=== PATIENT | female | born 1930 | race African-American/Black ===

== ENCOUNTER 2018-04-09 09:49 | Inpatient (IN) | payer OTHER ==
--- NOTE | 2018-04-09 10:10 | PDOC ---
History of Present Illness - General Stated Complaint: SOB Time Seen by Provider: 04/09/18 10:03 History Source: Patient Exam Limitations: Clinical Condition - History of Present Illness Initial Comments: 87 yo F w a hx of h/o arthritis and hypertension presents to the ER saying something is not right. She reports that she has been peeing much more frequently than usual and she feels short of breath. The excessive urination has been occurring for 3 days and the SOB began today. She denies dysuria or urgency. She denies any recent fevers, chills, infections, or chest pain. She denies having a cough. She also endorses chronic knee pain as well as itchiness for the past 7 months which has not changed in character. She denies having a headache, dizziness, lightheadedness, chest pain, cough, abdominal pain, back pain, blurry vision, or recent travel. PCP: Tucker Perez PSH: Social Hx: Denies smoking, Drinking, or other substance usage. Allergies: Penicillin Past History - Past Medical History Allergies/Adverse Reactions: Allergies Allergy/AdvReac Type Severity Reaction Status Date / Time Penicillins Allergy Verified 04/09/18 10:16 Home Medications: Ambulatory Orders Acetaminophen W/ Codeine #3 [Tylenol # 3 -] 1 tab PO TID 05/25/14 Nifedipine ER [Procardia XL -] 90 mg PO DAILY 05/25/14 Budesonide/Formeterol Fumarate [SYMBICORT 80/4.5mcg -] 1 inh PO DAILY 04/09/18 Celecoxib [Celebrex] 200 mg PO DAILY 04/09/18 Anemia: No Asthma: No Cancer: No Cardiac Disorders: No CVA: No COPD: No Diabetes: No GI Disorders: No Disorders: No HTN: Yes Hypercholesterolemia: No Liver Disease: No Seizures: No Thyroid Disease: No - Surgical History Abdominal Surgery: No Appendectomy: No Cardiac Surgery: No Cholecystectomy: No Lung Surgery: No Neurologic Surgery: No Orthopedic Surgery: No - Immunization History Td Vaccination: Yes TDAP Vaccination: Yes Immunization Up to Date: Yes - Suicide/Smoking/Psychosocial Hx Smoking History: Former smoker Have you smoked in the past 12 months: Yes Number of Cigarettes Smoked Daily: 20 If you are a former smoker, when did you quit?: 2 yrs ago 'Breaking Loose' booklet given: 05/26/14 Hx Alcohol Use: Yes Drug/Substance Use Hx: No Substance Use Type: Alcohol Hx Substance Use Treatment: No Review of Systems - Review of Systems Able to Perform ROS?: Yes Comments:: CONSTITUTIONAL: Present: Fatigue Absent: fever, no chills EYES: Absent: visual changes ENT: Absent: ear pain, no sore throat CARDIOVASCULAR: Absent: chest pain, no palpitations RESPIRATORY: Present: SOB Absent: cough GI: Absent: abdominal pain, no nausea, no vomiting, no constipation, no diarrhea GENITOURINARY: Absent: dysuria, no frequency, no hematuria MUSKULOSKELETAL: Present: Arthralgia Absent: back pain, no myalgia SKIN: Absent: rash NEURO: Absent: headache *Physical Exam - Physical Exam Comments: GENERAL: Well-appearing, well-nourished. No apparent distress. HEENT: Normocephalic, atraumatic. PERRL, EOM intact. CARDIOVASCULAR: Tachycardic rate, irregular rhythm. Normal S1, S2. PULMONARY: Clear to auscultation bilaterally. ABDOMEN: Soft, non-distended, non-tender. EXTREMITIES: limited ROM in lower extremities. No gross deformities. SKIN: Warm, dry. No rash NEUROLOGICAL: No focal neurological deficits. 04/09/18 10:40 ED Treatment Course - LABORATORY CBC & Chemistry Diagram: 04/09/18 11:01 04/09/18 11:01 Medical Decision Making - Medical Decision Making 87 yo F w a hx of h/o arthritis and hypertension presents to the ER saying something is not right. She reports that she has been peeing much more frequently than usual and she feels short of breath. - tachycardic DDx IBNLT: UTI/pylo, PE, PNA, Arrhythmia Plan: Labs, urine, EKG, CXR, re-assess. EKG: Patient has new onset AFIB. This is likely what's causing her symptoms. We will admit the patient to Tele for a further cardio workup and echocardiogram. - Cardio consult to Dr. Sheikh woodall. *DC/Admit/Observation/Transfer Diagnosis at time of Disposition: Atrial fibrillation by electrocardiogram - Discharge Dispostion Condition at time of disposition: Guarded Decision to Admit order: Yes - Referrals Referrals: Tucker Perez MD [Primary Care Provider] - - Patient Instructions - Post Discharge Activity
[2018-04-09] MEDS ORDERED: SODIUM CHLORIDE 0.9% 500 ML INFUS.BAG IV ONE (10:41)
--- NOTE | 2018-04-09 10:44 | PDOC ---
Attending Attestation - Resident Resident Name: Fidencio Pollard - ED Attending Attestation I have performed the following: I have examined & evaluated the patient, The case was reviewed & discussed with the resident, I agree w/resident's findings & plan, Exceptions are as noted - HPI HPI: 04/09/18 10:43 87y F htn, arthritis, presents with presents with sob, feeling weakness, x 1 day. endorses urinary frequency x 3 days. Patient states that she is feeling urinary frequency and strong smelling urine for 3 daysthat she has been feeling generally weak today. There is no fever, chills, back pain, abdominal pain, diarrhea, bpr, melena, chest pain, cough, hemoptysis, leg swelling. pt endorses mild palpitations. per EMS, upon arrival, her vitals are normal and ekg noted irregular afib that is rate controlled. a/p new onset afib, rate controlled will work up cause to r/o anemia, metabolic derangement, acs anticipate admission for further management/a/c/card assessment - Physicial Exam PE: 04/09/18 11:22 GENERAL: The patient is awake, alert, and fully oriented, Nontoxic - in no acute distress. HEAD: Normocephalic, atraumatic. EYES: extraocular movements intact, sclera anicteric, conjunctiva clear. ENT: Normal voice, Moist mucous membranes. NECK: Normal range of motion, supple LUNGS: Breath sounds equal, clear to auscultation bilaterally. No wheezes, no rhonchi, no rales. HEART: Irregularly irregular, no appreciable murmurs ABDOMEN: Soft, nontender, No guarding, no rebound. . No CVA tenderness EXTREMITIES: Normal range of motion, no calf tenderness, negative Homans NEUROLOGICAL: No facial assymetry, Normal speech, moving all 4'extremities simultaneously and symmetrically PSYCH: Normal mood, normal affect. SKIN: Warm, Dry, normal turgor, - Medical Decision Making 04/10/18 08:27 see above Heart Score/ECG Review - ECG Impressions Comment:: 04/09/18 11:23 Twelve-lead EKG was performed and reviewed by me. Irregularly irregular, rate of 104 Left axis deviation Normal R wave progression, Q waves in the inferior leads
[2018-04-09 11:30] LABS: BASO % 0.5 % (0-2.0); EOS % 1.5 % (0-4.5); HEMATOCRIT 45.4 % (32.4-45.2); HEMOGLOBIN 15.5 GM/dL (10.7-15.3); LYMPH % 24.7 % (8-40); MCH 31.4 pg (25.7-33.7); MCHC 34.1 g/dl (32.0-36.0); MEAN PLT VOLUME 10.6 fl (7.5-11.1); MONO % 9.7 % (3.8-10.2); NEUT % 63.6 % (42.8-82.8); PLATELET COUNT 162 K/MM3 (134-434); RBC 4.93 M/mm3 (3.60-5.2); RDW 14.6 % (11.6-15.6); WHITE BLOOD COUNT 4.7 K/mm3 (4.0-10.0)
[2018-04-09 12:05] LABS: ALBUMIN 3.1 g/dl (3.4-5.0); ALK PHOS 78 U/L (45-117); ANION GAP 7 MMOL/L (8-16); BILIRUBIN,TOTAL 0.7 mg/dL (0.2-1); BLOOD UREA NITROGEN 17 mg/dL (7-18); CALCIUM 8.6 mg/dL (8.5-10.1); CHLORIDE 106 mmol/L (98-107); CO2 27 mmol/L (21-32); GLUCOSE,RANDOM 112 mg/dL (74-106); POTASSIUM 3.9 mmol/L (3.5-5.1); SGOT/AST 81 U/L (15-37); SGPT/ALT 64 U/L (13-61); SODIUM 140 mmol/L (136-145); TOT PROT 7.3 g/dl (6.4-8.2)
[2018-04-09 12:10] LABS: URINE APPEARANCE CLEAR; URINE BILIRUBIN NEGATIVE (<2.0 mg/dL); URINE COLOR LTYELLOW; URINE GLUCOSE (UA) NEGATIVE (NEGATIVE); URINE KETONE NEGATIVE (NEGATIVE); URINE LEUK ESTERASE NEGATIVE (NEGATIVE); URINE NITRITE NEGATIVE (NEGATIVE); URINE PROTEIN NEGATIVE (NEGATIVE); URINE UROBILINOGEN NEGATIVE mg/dL (0.2-1.0)
--- NOTE | 2018-04-09 12:36 | EKG ---
Test Reason : Blood Pressure : / mmHG Vent. Rate : 104 BPM Atrial Rate : 088 BPM P-R Int : 000 ms QRS Dur : 078 ms QT Int : 352 ms P-R-T Axes : 000 -45 027 degrees QTc Int : 462 ms POOR DATA QUALITY, INTERPRETATION MAY BE ADVERSELY AFFECTED ATRIAL FIBRILLATION WITH RAPID VENTRICULAR RESPONSE LEFT AXIS DEVIATION SEPTAL INFARCT , AGE UNDETERMINED INFERIOR INFARCT , AGE UNDETERMINED ABNORMAL ECG WHEN COMPARED WITH ECG OF 25-MAY-2014 18:40, ATRIAL FIBRILLATION HAS REPLACED SINUS RHYTHM SEPTAL INFARCT IS NOW PRESENT INFERIOR INFARCT IS NOW PRESENT NONSPECIFIC T WAVE ABNORMALITY NOW EVIDENT IN INFERIOR LEADS Confirmed by CARLY ALLEN MD ([id number]) on 04/09/2018 12:35:44 PM Referred By: Confirmed By:CARLY ALLEN MD
--- NOTE | 2018-04-09 20:41 | HP ---
DATE OF ADMISSION: 04/09/2018 DATE OF DICTATION: 04/09/2018 This is an 87-year-old female well known to me, known to have hypertension, compliant with her medications, came to the emergency room today with complaint of weakness. In the ER, she was found to have atrial fibrillation and CHF. Also, complaining of leg swelling. After receiving the IV Lasix, her shortness of breath improved. Being admitted with a diagnosis of CHF and atrial fibrillation. Repeat EKG showed normal sinus rhythm. PHYSICAL EXAMINATION: Vital Signs: Today, her blood pressure is 155/96, pulse 108, respirations 20, temperature 98. HEENT: Unremarkable. Neck: Supple. No JVD. Lungs: Clear. Heart: S1, S2 are normal. No S3, S4. Abdomen: Soft. Neurological: Examination grossly normal. Leg edema present. IMPRESSION: 1. Congestive heart failure. 2. Atrial fibrillation. 3. Hypertension. PLAN: Cardiology consult, Dr. Bryant. Continue present medication. Will follow. Lenin [id number]
[2018-04-09] MEDS ORDERED: ACETAMINOPHEN WITH CODEINE 300MG/30MG TABLET PO PRN (23:38)
[2018-04-10 02:16] VITALS: BMI 34.7
--- NOTE | 2018-04-10 09:14 | PN ---
Progress Note, Physician Chief Complaint: Feels better - Current Medication List Current Medications: Active Medications Acetaminophen/Codeine Phosphate (Tylenol # 3 -) 1 tab PO Q8H PRN PRN Reason: PAIN LEVEL 6-10 Budesonide/Formoterol Fumarate (Symbicort 80/4.5mcg -) 1 puff IH DAILY [facility] Celecoxib (Celebrex -) 200 mg PO DAILY [facility] Nifedipine (Procardia Xl -) 90 mg PO DAILY [facility] - Objective Vital Signs: Vital Signs Temperature 98.5 F 04/10/18 01:15 Pulse Rate 106 H 04/10/18 01:15 Respiratory Rate 18 04/10/18 01:15 Blood Pressure 162/105 H 04/10/18 01:15 O2 Sat by Pulse Oximetry (%) 96 04/09/18 23:00 Constitutional: Yes: No Distress Eyes: Yes: WNL HENT: Yes: WNL Neck: Yes: WNL Cardiovascular: Yes: WNL Respiratory: Yes: WNL Gastrointestinal: Yes: WNL ...Rectal Exam: Yes: WNL Genitourinary: Yes: WNL Musculoskeletal: Yes: Joint Stiffness Edema: LLE: 1+, RLE: 1+ Psychiatric: Yes: Alert Labs: CBC, BMP 04/09/18 11:01 04/09/18 11:01 - ....Imaging Chest X-ray: Report Reviewed Assessment/Plan Cardiology consult Dr Gordon
[2018-04-10] MEDS ORDERED: PT OWN MED DRAWER 7, Y5N ONE (09:15)
[2018-04-10] MEDS: NIFEdipine E.R. 90 MG TABLET (FP) PO SCH (09:44)
[2018-04-10] MEDS: CELECOXIB 200 MG CAPSULE PO SCH (09:44)
[2018-04-10] MEDS: BUDESONIDE/FORMETEROL FUMARATE 80/4.5 mcg INHALER IH SCH (09:44)
[2018-04-11] MEDS ORDERED: PT OWN MED DRAWER 7, Y5N ONE (09:27)
[2018-04-11] MEDS: NIFEdipine E.R. 90 MG TABLET (FP) PO SCH (10:37)
[2018-04-11] MEDS: CELECOXIB 200 MG CAPSULE PO SCH (10:37)
--- NOTE | 2018-04-11 11:59 | PN ---
Progress Note, Physician Chief Complaint: Feels tired - Current Medication List Current Medications: Active Medications Acetaminophen/Codeine Phosphate (Tylenol # 3 -) 1 tab PO Q8H PRN PRN Reason: PAIN LEVEL 6-10 Budesonide/Formoterol Fumarate (Symbicort 80/4.5mcg -) 1 puff IH DAILY [facility] Last Admin: 04/10/18 09:44 Dose: 1 inhaler Celecoxib (Celebrex -) 200 mg PO DAILY [facility] Last Admin: 04/11/18 10:37 Dose: 200 mg Nifedipine (Procardia Xl -) 90 mg PO DAILY [facility] Last Admin: 04/11/18 10:37 Dose: 90 mg - Objective Vital Signs: Vital Signs Temperature 98 F 04/11/18 10:35 Pulse Rate 90 04/11/18 10:35 Respiratory Rate 20 04/11/18 10:35 Blood Pressure 133/80 04/11/18 10:35 O2 Sat by Pulse Oximetry (%) 96 04/10/18 21:00 Constitutional: Yes: Mild Distress Eyes: Yes: WNL HENT: Yes: WNL Neck: Yes: WNL Cardiovascular: Yes: Pulse Irregular Respiratory: Yes: WNL Gastrointestinal: Yes: WNL ...Rectal Exam: Yes: Deferred Musculoskeletal: Yes: Muscle Weakness Edema: No Psychiatric: Yes: Alert Labs: CBC, BMP 04/09/18 11:01 04/09/18 11:01 - ....Imaging EKG: Image Reviewed Assessment/Plan Start [facility]
[2018-04-11] MEDS: APIXABAN 2.5 MG TABLET PO SCH ×2 (12:54→21:44)
[2018-04-11] MEDS: BUDESONIDE/FORMETEROL FUMARATE 80/4.5 mcg INHALER IH SCH (13:12)
[2018-04-11] MEDS ORDERED: APIXABAN 2.5 MG TABLET PO SCH (22:00)
--- NOTE | 2018-04-12 09:34 | PN ---
Progress Note, Physician Chief Complaint: Pt lying in bed,comfortable No Sob AF present,Cardiology consult pending Heart rate under control - Current Medication List Current Medications: Active Medications Acetaminophen/Codeine Phosphate (Tylenol # 3 -) 1 tab PO Q8H PRN PRN Reason: PAIN LEVEL 6-10 Apixaban (Eliquis -) 2.5 mg PO BID [facility] Last Admin: 04/11/18 21:44 Dose: 2.5 mg Budesonide/Formoterol Fumarate (Symbicort 80/4.5mcg -) 1 puff IH DAILY [facility] Last Admin: 04/11/18 13:12 Dose: 1 inhaler Celecoxib (Celebrex -) 200 mg PO DAILY [facility] Last Admin: 04/11/18 10:37 Dose: 200 mg Nifedipine (Procardia Xl -) 90 mg PO DAILY [facility] Last Admin: 04/11/18 10:37 Dose: 90 mg - Objective Vital Signs: Vital Signs Temperature 98.2 F 04/12/18 06:00 Pulse Rate 86 04/12/18 06:00 Respiratory Rate 20 04/12/18 06:00 Blood Pressure 140/80 04/12/18 06:00 O2 Sat by Pulse Oximetry (%) 98 04/11/18 21:00 Constitutional: Yes: No Distress Eyes: Yes: Conjunctiva Clear HENT: Yes: Atraumatic, Normocephalic Neck: Yes: Supple, Trachea Midline Cardiovascular: Yes: Pulse Irregular Respiratory: Yes: Regular, CTA Bilaterally Gastrointestinal: Yes: Normal Bowel Sounds, Soft Breast(s): Yes: WNL Musculoskeletal: Yes: WNL Edema: No Peripheral Pulses WNL: Yes Neurological: Yes: WNL, Alert ...Motor Strength: WNL Psychiatric: Yes: WNL, Alert Labs: CBC, BMP 04/09/18 11:01 04/09/18 11:01 Assessment/Plan HTN Atrial fibrillation new onset PLAN Cardiology consult Pending Continue Eliqius Continue BP meds will f/u PT
[2018-04-12] MEDS: CELECOXIB 200 MG CAPSULE PO SCH (09:49)
[2018-04-12] MEDS: NIFEdipine E.R. 90 MG TABLET (FP) PO SCH (09:49)
[2018-04-12] MEDS: BUDESONIDE/FORMETEROL FUMARATE 80/4.5 mcg INHALER IH SCH (09:50)
[2018-04-12] MEDS: APIXABAN 2.5 MG TABLET PO SCH ×2 (09:50→21:42)
[2018-04-12] MEDS: metoPROLOL SUCCINATE 25 MG TAB.SR.24H (FP) PO SCH (16:15)
--- NOTE | 2018-04-12 20:50 | CONS ---
CARDIOLOGY CONSULTATION DATE OF CONSULTATION: DATE OF DICTATION: 04/12/2018 REQUESTING PHYSICIAN: Tucker Perez MD CHIEF COMPLAINT: Dizziness, unsteady gait, palpitations, shortness of breath, and episode of vertigo. The patient is an 87-year-old female with history of hypertension, developed lightheadedness, dizziness, and she felt unsteady while ambulating with the help of a walker, also noticed palpitations and episode of vertigo where the room was spinning and shortness of breath. These symptoms occurred on , and the symptoms persisted and came to the hospital on Thursday. There is no history of chest pain or discomfort either at rest or with exertion. She had dyspnea with exertion. No history of paroxysmal nocturnal dyspnea or orthopnea reported. No history of focal weakness, presyncope, or syncope. No history of diabetes mellitus. PAST HISTORY: As mentioned in the history of present illness. History of bilateral deafness. SURGICAL HISTORY: Had 3 sections. Bilateral cataract extraction and intraocular lens implantation. SOCIAL HISTORY: She is a , has a son and 2 daughters. The son is blind. She used to smoke 3 packs of cigarettes starting at the age of 18 and stopped in her 50s. She admits to drinking heavily and stopped 3-4 years ago. No history of drug use and has 1-2 cups of coffee per day. FAMILY HISTORY: Father in his old age, was an alcoholic and heavy smoker. Mother at the age of 102 and also smoked heavily and was a heavy imbiber of alcohol. Had 2 brothers. One of them of alcoholism. The other brother is sick; cause is uncertain. Has a sister who is healthy. ALLERGIES: As noted in the hospital records, she is allergic to PENICILLIN. CURRENT MEDICATIONS: 1. Symbicort 80/4.5 mcg 1 inhalation daily. 2. Eliquis 2.5 mg p.o. b.i.d. 3. Nifedipine 90 mg p.o. daily. 4. Metoprolol succinate 25 mg started today. 5. Celebrex 200 mg p.o. daily. 6. Acetaminophen and codeine No. 3 one tablet q.8 hours p.r.n. REVIEW OF SYSTEMS: Constitutional: No history of chills, fever, or night sweats. No history of unintentional weight loss. HEENT: History of occasional frontal headache, especially when she misses her medications for hypertension. No history of diplopia, blurred vision. History of bilateral deafness. No history of tinnitus. No history of epistaxis or hoarseness. Cardiovascular: See history of present illness. Respiratory: Occasional cough. No history of hemoptysis. No history of tuberculosis. Gastrointestinal: Denies having nausea, vomiting, melena, or hematemesis. No history of unintentional weight loss or early satiety. No history of abdominal pain or discomfort. No history of change normal bowel habits. Musculoskeletal: History of arthritis. No history of myalgias. Genitourinary: History of recent frequency of micturition. No history of dysuria, frequency, or hematuria. Endocrine: No history of polyuria or polydipsia. No history of intolerance to cold or warm weather. Hematological: No history of anemia, bleeding, or ecchymosis. PHYSICAL EXAMINATION: General: An 87-year-old alert female who was in no acute distress. No pallor, cyanosis, clubbing, or jaundice. Vital Signs: Blood pressure 127/72 mmHg, pulse 106 beats per minute and irregularly irregular. Temperature 98 degrees Fahrenheit. Respirations were 20 per minute. Oxygen saturation 98% on 2 L of O2. Neck: Supple. Positive hepatojugular reflex. Carotids were 2+. Upstrokes were normal. No bruits were heard, and no thyromegaly was present. Heart: No heaves or thrills. Heart sounds were distant. Ejection systolic murmur grade 1-2/6 was heard at the second right intercostal space, ending in early systole. There was a decrescendo systolic murmur grade 2/6 heard at the lower left sternal border and apex. No diastolic murmur or gallops were heard. Lungs: Fine crepitations at the right base. No expiratory wheezing. Abdomen: Obese, soft, and nontender. No hepatosplenomegaly or palpable masses were felt. Bowel sounds were absent. No bruits were heard. There was a well-healed hypogastric surgical scar. Extremities: No calf tenderness. There was 1+ left ankle edema. Trace right pretibial edema. Femoral pulses were 2+. Dorsalis pedis pulses were 1+. Posterior tibial pulses could not be palpated. LABORATORY DATA: ECG dated April 09, 2018: Suboptimal study. Baseline artifacts. Atrial fibrillation with rapid ventricular response, left anterior hemiblock, poor R-wave progression, V1 to V3; ST and T-wave abnormalities. X-ray chest: Single AP view of the chest reveals large heart, unfolded aorta, and some new atelectatic changes in the left mid-zone since May 30, 2014. There is no sign of gross consolidation. The angles are sharp. Soft tissue is intact. There are degenerative changes. Correlation and followup recommended. CBC: WBC count 4700, hemoglobin 15.5 g/dL, hematocrit 45.4%, platelet count 162,000. Chemistry: Sodium 140, potassium 3.9, chloride 106, CO2 of 27 mmol/L. BUN 17, creatinine 1.0 mg/dL. Random glucose was 112 mg/dL. Total bilirubin 0.7. AST 81 (elevated). ALT 64 (elevated). Alkaline phosphatase was 78. Troponin 0.02. TSH was 1.24. IMPRESSION: 1. Atrial fibrillation with rapid ventricular response. 2. Palpitations, lightheadedness, vertigo secondary to number 1. 3. Dyspnea, suspect left ventricular failure precipitated by number 1. 4. Hypertension, hypertensive cardiovascular disease. 5. Systolic murmur compatible with aortic valvular disease. 6. Abnormal liver function tests. 7. History of osteoarthritis. RECOMMENDATIONS: 1. BNP. 2. Dose of metoprolol succinate could be increased if patient continues to have a rapid ventricular response, especially when ambulating. 3. Echocardiogram. 4. Consider CT scan of the head to exclude the possibility of systemic embolization. 5. Increase ambulation with assistance. PROGNOSIS: Guarded. Thank you for your referral. Yours sincerely, COURTNEY GARCIA M.D. [id number]
[2018-04-13 06:56] LABS: BASO % 0.5 % (0-2.0); EOS % 1.5 % (0-4.5); HEMATOCRIT 43.6 % (32.4-45.2); HEMOGLOBIN 13.9 GM/dL (10.7-15.3); LYMPH % 35.8 % (8-40); MCH 29.8 pg (25.7-33.7); MCHC 31.9 g/dl (32.0-36.0); MEAN CELL VOLUME 93.7 fl (80-96); MEAN PLT VOLUME 10.3 fl (7.5-11.1); MONO % 9.6 % (3.8-10.2); NEUT % 52.6 % (42.8-82.8); PLATELET COUNT 138 K/MM3 (134-434); RBC 4.65 M/mm3 (3.60-5.2); RDW 14.4 % (11.6-15.6)
[2018-04-13 07:09] LABS: ALK PHOS 75 U/L (45-117); ANION GAP 9 MMOL/L (8-16); BLOOD UREA NITROGEN 25 mg/dL (7-18); CALCIUM 8.5 mg/dL (8.5-10.1); CHLORIDE 106 mmol/L (98-107); CO2 26 mmol/L (21-32); CREATININE 0.9 mg/dL (0.55-1.3); GLUCOSE,RANDOM 104 mg/dL (74-106); N-TERMINAL BNP 783.3 pg/ml (5-450); POTASSIUM 4.3 mmol/L (3.5-5.1); SGOT/AST 72 U/L (15-37); SGPT/ALT 57 U/L (13-61); SODIUM 141 mmol/L (136-145); TOT PROT 7.1 g/dl (6.4-8.2)
[2018-04-13 07:21] LABS: INR 1.15 (0.83-1.09); PROTHROMBIN TIME (PATIENT) 13.6 SEC (9.7-13.0)
--- NOTE | 2018-04-13 09:43 | PN ---
Progress Note, Physician Chief Complaint: Pt lying in bed,comfortable No Sob,no dizziness AF present,Cardiology consult appreciated BNP 783 Heart rate under control - Current Medication List Current Medications: Active Medications Apixaban (Eliquis -) 2.5 mg PO BID [facility] Last Admin: 04/12/18 21:42 Dose: 2.5 mg Budesonide/Formoterol Fumarate (Symbicort 80/4.5mcg -) 1 puff IH DAILY [facility] Last Admin: 04/12/18 09:50 Dose: 1 inhaler Celecoxib (Celebrex -) 200 mg PO DAILY [facility] Last Admin: 04/12/18 09:49 Dose: 200 mg Metoprolol Succinate (Toprol Xl -) 25 mg PO DAILY [facility] Last Admin: 04/12/18 16:15 Dose: 25 mg Nifedipine (Procardia Xl -) 90 mg PO DAILY [facility] Last Admin: 04/12/18 09:49 Dose: 90 mg - Objective Vital Signs: Vital Signs Temperature 98.1 F 04/13/18 05:52 Pulse Rate 83 04/13/18 05:52 Respiratory Rate 20 04/13/18 05:52 Blood Pressure 120/74 04/13/18 05:52 O2 Sat by Pulse Oximetry (%) 96 04/12/18 20:45 Constitutional: Yes: No Distress Eyes: Yes: Conjunctiva Clear HENT: Yes: Atraumatic Neck: Yes: Supple Cardiovascular: Yes: Pulse Irregular Respiratory: Yes: Regular, CTA Bilaterally Gastrointestinal: Yes: Normal Bowel Sounds, Soft Musculoskeletal: Yes: WNL Extremities: Yes: Other (lt antecubital fossa induration and slight tenderness) Edema: Yes Edema: LLE: Trace, RLE: Trace Peripheral Pulses WNL: Yes Neurological: Yes: WNL, Alert ...Motor Strength: WNL Psychiatric: Yes: WNL, Alert Labs: CBC, BMP 04/13/18 05:30 04/13/18 05:30 INR, PTT INR 1.15 (0.83-1.09) H 04/13/18 05:30 Assessment/Plan HTN Atrial fibrillation new onset,rate under control ?cellulitis Lt antecubital fossa PLAN Cardiology f/u Continue Eliqius Continue BP meds will f/u cardiology rec regarding d/c plan Venous doppler Lt UE keflex 250mg po tid 7days Elevation of Lt UE WArm compress motrin 400mg potid prn
[2018-04-13 10:03] VITALS: BP 126/66; PULSE 93; TEMP 98.4
[2018-04-13] MEDS: NIFEdipine E.R. 90 MG TABLET (FP) PO SCH (10:03)
[2018-04-13] MEDS: metoPROLOL SUCCINATE 25 MG TAB.SR.24H (FP) PO SCH (10:03)
[2018-04-13] MEDS: CELECOXIB 200 MG CAPSULE PO SCH (10:03)
[2018-04-13] MEDS: BUDESONIDE/FORMETEROL FUMARATE 80/4.5 mcg INHALER IH SCH (10:04)
[2018-04-13] MEDS: APIXABAN 2.5 MG TABLET PO SCH (10:04)
--- NOTE | 2018-04-13 10:17 | PN ---
Progress Note (short form) - Note Progress Note: 87 year old AA female known case of hypertension, admitted with dizziness, palpitations, intermittent SOB and found to be in atril fib with rapid ventricular response. Rate controlied with Toprol XL., tacr bilateral ankle edema. No further dyspnea or dizziness is being discharged. Active Medications Apixaban (Eliquis -) 2.5 mg PO BID [facility] Last Admin: 04/13/18 10:04 Dose: 2.5 mg Budesonide/Formoterol Fumarate (Symbicort 80/4.5mcg -) 1 puff IH DAILY [facility] Last Admin: 04/13/18 10:04 Dose: 1 puff Celecoxib (Celebrex -) 200 mg PO DAILY [facility] Last Admin: 04/13/18 10:03 Dose: 200 mg Metoprolol Succinate (Toprol Xl -) 25 mg PO DAILY [facility] Last Admin: 04/13/18 10:03 Dose: 25 mg Nifedipine (Procardia Xl -) 90 mg PO DAILY [facility] Last Admin: 04/13/18 10:03 Dose: 90 mg Last Vital Signs Temp Pulse Resp BP Pulse Ox 98.4 F 93 irregular 16 126/66 97 04/13/18 10:02 04/13/18 10:02 04/13/18 10:02 04/13/18 10:02 04/13/18 09:00 NECK: Supple, no JVD, carotids equal, no bruits heard. HEART: PMI in the the 5th ICS, distant sounds, S1 variable,S2 normal. RAISA II/ at the 2nd right ICS.NO diastolic murmur or gallops heard. LUNGS: Clear on auscultation. ABDOMEN: Soft, nontender, no organomegaly appreciated. EXTREMITIES: No calf tenderness, trace bilateral ankle edema.Reddness and swelling left anticubital fossa and forearm. CBC, BMP 04/13/18 05:30 04/13/18 05:30 IMPRESSION: 1. Atrial fibrillation with controlled ventricular response, probalbly new onset. 2. Hypertension/HCVD. 3. AV disease. 4. Cellulitis of the left forearm. RECOMMENDATIONS: 1. As mentioned in the consult. 2. Evaluation and treatment of the cellulitis of the left forearm. 3. Out patient followup. 4. Discharge when medically stable.
--- NOTE | 2018-04-13 21:04 | DS ---
DATE OF ADMISSION: 04/09/2018 DATE OF DISCHARGE: 04/13/2018 The patient is an 87-year-old female with history of arthritis, hypertension, admitted with atrial fibrillation, new onset. Patient came with shortness of breath and feeling weakness and slight dizziness. PAST MEDICAL HISTORY: As mentioned before. ALLERGIES: PENICILLIN. MEDICATIONS: Patient is on nifedipine ER, Symbicort 80/4.5, and Celebrex for arthritis. PHYSICAL EXAMINATION: General: At the time of admission, in the emergency room, patient was awake, alert, and fully oriented. No apparent distress. Vital Signs: In the emergency room the temperature was 97.8, pulse rate 108 and irregular, blood pressure 147/95, respiratory rate 16, and saturation was 99. Head and Neck: Normal. Respiratory: Clear. Cardiovascular: First and second sound are irregular. Abdomen: Soft and no tenderness. No distention. Bowel sounds present. Extremities: No pedal edema. LABORATORY: Shows a CBC normal, CMP normal. EKG shows atrial fibrillation. Chest x-ray: No gross consolidation. Degenerative changes present. Thyroid function was normal. HOSPITAL COURSE: The case was discussed with Cardiology who recommended admission to telemetry. Patient admitted to telemetry. EKG showed pulse irregularly irregular, rate of 104, left axis deviation. Normal RV progression. Q-wave in the inferior leads. Patient was started on Eliquis 2.5 mg p.o. b.i.d., monitored on telemetry, and Procardia XL 90 mg p.o. daily. Metoprolol XL 25 mg started and rate under control. Patient had pain and swelling in the left antecubital fossa. Venous Doppler of the left upper extremity done shows superficial thrombophlebitis in the left arm, basically in the superficial cephalic vein. There were mild cellulitis changes in the left antecubital fossa. Patient was discharged home on Eliquis 2.5 mg p.o. b.i.d., Motrin 400 mg p.o. b.i.d., Procardia and Toprol XL 25 mg p.o. daily. Recommend evaluation of the arm, hot compresses, and Keflex 250 mg p.o. t.i.d. for 5 days given for the cellulitis. Patient was stable on the floor and discharged home in stable condition. Recommended to follow with Cardiology and primary care physician in 1 week. Patient was stable at the time of discharge. Lenin [id number]
== END 2018-04-13 15:02 | disposition home or self-care (01) | DRG 309 ==
LOC: JER 09:49 → JERBED 13:30 → J4W 22:35
PROVIDERS: ADMIT Internal Medicine; ATTEND Internal Medicine
DX: I48.91 Unspecified atrial fibrillation (principal); L03.114 Cellulitis of left upper limb; Z88.0 Allergy status to penicillin; I11.0 Hypertensive heart disease with heart failure; I50.9 Heart failure, unspecified; R79.89 Other specified abnormal findings of blood chemistry; I80.8 Phlebitis and thrombophlebitis of other sites
CPT/HCPCS: 36415; 71045-TC-FY; 80053; 81003; 83880; 84443; 84484; 85025; 85610; 87086; 93005; 93010; 93971; 97116-GP; 97162-GP; 99284-25

== ENCOUNTER 2018-08-29 15:47 | Inpatient (IN) | payer OTHER | END 2018-09-04 16:20 | disposition home or self-care (01) | LOC: J4S 08-30 09:04 → JER 15:47 → JERBED 17:43 ==

== ENCOUNTER 2021-02-07 11:35 | Inpatient (IN) | payer OTHER ==
[2021-02-07] MEDS ORDERED: ALBUTEROL SO4 2.5/IPRATROPIUM 0.5 INH SOL 3 ML VIAL.NEB. NEB ONE ×2 (12:28→12:47)
[2021-02-07] MEDS ORDERED: FUROSEMIDE 40 MG/4 ML INJECTABLE VIAL IVPUSH ONE ×2 (12:29→23:46)
[2021-02-07] MEDS ORDERED: FUROSEMIDE 40 MG/4 ML INJECTABLE VIAL ONE ×2 (12:47→23:51)
[2021-02-07 12:58] LABS: BASO % 0.7 % (0-2.0); EOS % 0.6 % (0-4.5); HEMATOCRIT 41.8 % (32.4-45.2); HEMOGLOBIN 13.5 GM/dL (10.7-15.3); LYMPH % 10.7 % (8-40); MCHC 32.2 g/dl (32.0-36.0); MEAN CELL VOLUME 93.1 fl (80-96); MEAN PLT VOLUME 9.7 fl (7.5-11.1); MONO % 11.8 % (3.8-10.2); NEUT % 76.2 % (42.8-82.8); PLATELET COUNT 157 10^3/uL (134-434); RBC 4.49 M/mm3 (3.60-5.2); RDW 17.4 % (11.6-15.6)
[2021-02-07 13:23] LABS: CALCIUM 8.8 mg/dL (8.5-10.1)
[2021-02-07 13:24] LABS: ALBUMIN 3.1 g/dl (3.4-5.0)
[2021-02-07 13:27] LABS: CREATININE 1.9 mg/dL (0.55-1.3)
[2021-02-07 13:32] LABS: N-TERMINAL BNP 3558.4 pg/ml (5-450)
[2021-02-07] MEDS ORDERED: POLYETHYLENE GLYCOL (HEALTHYLAX) 3350 17 GM PACKET PO PRN (21:41)
[2021-02-07] MEDS ORDERED: ACETAMINOPHEN 325 MG TABLET (FP) PO PRN (21:41)
[2021-02-07] MEDS: APIXABAN 2.5 MG TABLET PO SCH (22:06)
[2021-02-07] MEDS: ALBUTEROL SO4 2.5/IPRATROPIUM 0.5 INH SOL 3 ML VIAL.NEB. NEB PRN (23:49)
[2021-02-08 07:27] LABS: BASO % 0.5 % (0-2.0); HEMATOCRIT 40.3 % (32.4-45.2); HEMOGLOBIN 13.3 GM/dL (10.7-15.3); INR 1.39 (0.83-1.09); LYMPH % 16.8 % (8-40); MCH 30.3 pg (25.7-33.7); MEAN CELL VOLUME 91.8 fl (80-96); MEAN PLT VOLUME 9.6 fl (7.5-11.1); NEUT % 68.7 % (42.8-82.8); PLATELET COUNT 166 10^3/uL (134-434); PROTHROMBIN TIME (PATIENT) 15.6 SEC (9.7-13.0); RBC 4.39 M/mm3 (3.60-5.2); RDW 16.4 % (11.6-15.6); WHITE BLOOD COUNT 4.5 K/mm3 (4.0-10.0)
[2021-02-08 07:57] LABS: BLOOD UREA NITROGEN 41.6 mg/dL (7-18)
[2021-02-08 07:58] LABS: CALCIUM 8.9 mg/dL (8.5-10.1); MAGNESIUM 2.4 mg/dL (1.8-2.4)
[2021-02-08 08:03] LABS: CREATININE 1.7 mg/dL (0.55-1.3)
[2021-02-08] MEDS ORDERED: PT OWN MED DRAWER 7, Y5N ONE (09:39)
[2021-02-08] MEDS ORDERED: CELECOXIB 200 MG CAPSULE PO SCH (10:00)
[2021-02-08] MEDS ORDERED: FUROSEMIDE 40 MG/4 ML INJECTABLE VIAL IVPUSH SCH ×2 (10:15→14:46)
[2021-02-08] MEDS ORDERED: ceFAZolin SODIUM 1 GM VIAL ONE ×2 (11:11→16:45)
[2021-02-08] MEDS ORDERED: DEXTROSE 5%-WATER - 50 ML IVPB ONE ×2 (11:12→16:46)
[2021-02-08] MEDS: ALBUTEROL SO4 2.5/IPRATROPIUM 0.5 INH SOL 3 ML VIAL.NEB. NEB PRN ×2 (11:40→17:34)
[2021-02-08] MEDS: NIFEdipine E.R. 90 MG TABLET PO SCH (11:45)
[2021-02-08] MEDS: APIXABAN 2.5 MG TABLET PO SCH ×2 (11:45→21:13)
[2021-02-08] MEDS: metoPROLOL SUCCINATE 25 MG TAB.SR.24H (FP) PO SCH (11:46)
[2021-02-08] MEDS: CEFAZOLIN 1 GM in DEXTROSE 5%-WATER - 50 ML IVPB SCH ×2 (11:46→17:22)
[2021-02-08] MEDS ORDERED: FUROSEMIDE 40 MG TABLET (FP) PO SCH (14:00)
[2021-02-08] MEDS: FUROSEMIDE 40 MG/4 ML INJECTABLE VIAL IVPUSH SCH ×2 (17:22→17:35)
[2021-02-09] MEDS ORDERED: ceFAZolin SODIUM 1 GM VIAL ONE ×3 (02:41→15:58)
[2021-02-09] MEDS ORDERED: DEXTROSE 5%-WATER - 50 ML IVPB ONE ×3 (02:41→15:59)
[2021-02-09] MEDS: CEFAZOLIN 1 GM in DEXTROSE 5%-WATER - 50 ML IVPB SCH ×3 (02:47→17:25)
[2021-02-09] MEDS: FUROSEMIDE 40 MG/4 ML INJECTABLE VIAL IVPUSH SCH ×2 (05:55→13:38)
[2021-02-09 08:33] LABS: BLOOD UREA NITROGEN 47.6 mg/dL (7-18); CALCIUM 8.4 mg/dL (8.5-10.1)
[2021-02-09 08:37] LABS: CREATININE 1.6 mg/dL (0.55-1.3)
[2021-02-09] MEDS: NIFEdipine E.R. 90 MG TABLET PO SCH (09:49)
[2021-02-09] MEDS: APIXABAN 2.5 MG TABLET PO SCH ×2 (09:49→22:21)
[2021-02-09] MEDS: metoPROLOL SUCCINATE 25 MG TAB.SR.24H (FP) PO SCH (09:49)
[2021-02-09] MEDS: ALBUTEROL SO4 2.5/IPRATROPIUM 0.5 INH SOL 3 ML VIAL.NEB. NEB PRN (10:06)
[2021-02-10] MEDS ORDERED: ceFAZolin SODIUM 1 GM VIAL ONE ×3 (03:19→16:59)
[2021-02-10] MEDS ORDERED: DEXTROSE 5%-WATER - 50 ML IVPB ONE ×3 (03:19→17:00)
[2021-02-10] MEDS: CEFAZOLIN 1 GM in DEXTROSE 5%-WATER - 50 ML IVPB SCH ×3 (03:21→17:23)
[2021-02-10] MEDS: FUROSEMIDE 40 MG/4 ML INJECTABLE VIAL IVPUSH SCH ×2 (06:58→15:19)
[2021-02-10] MEDS: ALBUTEROL SO4 2.5/IPRATROPIUM 0.5 INH SOL 3 ML VIAL.NEB. NEB PRN ×2 (08:35→14:25)
[2021-02-10] MEDS: NIFEdipine E.R. 90 MG TABLET PO SCH (10:22)
[2021-02-10] MEDS: APIXABAN 2.5 MG TABLET PO SCH ×2 (10:22→22:46)
[2021-02-10] MEDS: metoPROLOL SUCCINATE 25 MG TAB.SR.24H (FP) PO SCH (10:22)
[2021-02-10] MEDS ORDERED: HALOPERIDOL LACTATE 5 MG/ML IM ONE (21:30)
[2021-02-11] MEDS ORDERED: DEXTROSE 5%-WATER - 50 ML IVPB ONE ×2 (01:19→09:16)
[2021-02-11] MEDS ORDERED: ceFAZolin SODIUM 1 GM VIAL ONE ×2 (01:19→09:16)
[2021-02-11] MEDS: CEFAZOLIN 1 GM in DEXTROSE 5%-WATER - 50 ML IVPB SCH ×2 (01:33→10:08)
[2021-02-11] MEDS: ALBUTEROL SO4 2.5/IPRATROPIUM 0.5 INH SOL 3 ML VIAL.NEB. NEB PRN ×2 (01:40→20:09)
[2021-02-11] MEDS ORDERED: LORazepam 2 MG/ML SDV VIAL IM ONE ×2 (02:38→14:45)
[2021-02-11] MEDS ORDERED: LORazepam 2 MG/ML SDV VIAL ONE (02:53)
[2021-02-11] MEDS: FUROSEMIDE 40 MG/4 ML INJECTABLE VIAL IVPUSH SCH ×2 (06:17→13:43)
[2021-02-11] MEDS ORDERED: HALOPERIDOL LACTATE 5 MG/ML IM ONE (06:33)
[2021-02-11] MEDS ORDERED: methylPREDNISolone NA SUCC 40 MG/1 ML VIAL IVPUSH ONE (06:35)
[2021-02-11] MEDS ORDERED: ALBUTEROL SO4 2.5/IPRATROPIUM 0.5 INH SOL 3 ML VIAL.NEB. NEB ONE (06:35)
[2021-02-11] MEDS ORDERED: methylPREDNISolone NA SUCC 40 MG/1 ML VIAL ONE (06:43)
[2021-02-11] MEDS ORDERED: LORazepam 2 MG/ML SDV VIAL IVPUSH ONE (06:43)
[2021-02-11] MEDS ORDERED: ALBUTEROL SO4 2.5/IPRATROPIUM 0.5 INH SOL 3 ML VIAL.NEB. NEB SCH (06:45)
[2021-02-11] MEDS: ALBUTEROL SO4 2.5/IPRATROPIUM 0.5 INH SOL 3 ML VIAL.NEB. NEB SCH ×2 (06:55→10:54)
[2021-02-11 08:47] LABS: HEMATOCRIT 39.1 % (32.4-45.2); HEMOGLOBIN 13.3 GM/dL (10.7-15.3); MCH 30.3 pg (25.7-33.7); MCHC 33.9 g/dl (32.0-36.0); MEAN CELL VOLUME 89.4 fl (80-96); PLATELET COUNT 148 10^3/uL (134-434); RBC 4.37 M/mm3 (3.60-5.2); RDW 15.7 % (11.6-15.6)
[2021-02-11 09:16] LABS: CALCIUM 8.7 mg/dL (8.5-10.1)
[2021-02-11 09:18] LABS: BILIRUBIN,TOTAL 1.1 mg/dL (0.2-1)
[2021-02-11] MEDS ORDERED: HALOPERIDOL DECANOATE 100 MG/ML IM ONE (09:46)
[2021-02-11] MEDS ORDERED: POTASSIUM CHLORIDE TABS 20 MEQ TABLET.ER (FP) PO SCH (10:00)
[2021-02-11] MEDS: NIFEdipine E.R. 90 MG TABLET PO SCH (10:07)
[2021-02-11] MEDS: APIXABAN 2.5 MG TABLET PO SCH ×2 (10:08→22:16)
[2021-02-11] MEDS: metoPROLOL SUCCINATE 25 MG TAB.SR.24H (FP) PO SCH (10:08)
[2021-02-11] MEDS ORDERED: PT OWN MED DRAWER 7, Y5N ONE ×2 (10:36→20:30)
[2021-02-11] MEDS: POTASSIUM CHLORIDE ORAL LIQUID 20 MEQ/15 ML PO SCH ×2 (10:53→22:16)
[2021-02-11] MEDS: SACUBITRIL/VALSARTAN 24 MG-26 MG TABLET PO SCH ×2 (10:53→22:16)
[2021-02-12] MEDS: FUROSEMIDE 40 MG/4 ML INJECTABLE VIAL IVPUSH SCH ×2 (05:35→13:51)
[2021-02-12] MEDS ORDERED: PT OWN MED DRAWER 7, Y5N ONE ×2 (09:09→21:31)
[2021-02-12] MEDS: SACUBITRIL/VALSARTAN 24 MG-26 MG TABLET PO SCH (09:24)
[2021-02-12] MEDS: metoPROLOL SUCCINATE 25 MG TAB.SR.24H (FP) PO SCH (09:24)
[2021-02-12] MEDS: APIXABAN 2.5 MG TABLET PO SCH ×2 (09:24→23:11)
[2021-02-12] MEDS: NIFEdipine E.R. 90 MG TABLET PO SCH (09:24)
[2021-02-12] MEDS: POTASSIUM CHLORIDE ORAL LIQUID 20 MEQ/15 ML PO SCH ×2 (09:25→23:13)
[2021-02-12] MEDS: NIFEdipine E.R. 30 MG TABLET PO SCH (11:32)
[2021-02-12] MEDS: ALBUTEROL SO4 2.5/IPRATROPIUM 0.5 INH SOL 3 ML VIAL.NEB. NEB PRN (20:30)
[2021-02-12] MEDS: SACUBITRIL/VALSARTAN 49 MG-51 MG TABLET PO SCH (23:11)
[2021-02-13] MEDS: FUROSEMIDE 40 MG/4 ML INJECTABLE VIAL IVPUSH SCH ×2 (07:01→13:22)
[2021-02-13] MEDS: APIXABAN 2.5 MG TABLET PO SCH ×2 (09:32→21:09)
[2021-02-13] MEDS: POTASSIUM CHLORIDE ORAL LIQUID 20 MEQ/15 ML PO SCH ×2 (09:32→21:20)
[2021-02-13] MEDS: NIFEdipine E.R. 30 MG TABLET PO SCH (09:32)
[2021-02-13] MEDS: SACUBITRIL/VALSARTAN 49 MG-51 MG TABLET PO SCH ×2 (09:32→21:20)
[2021-02-13] MEDS ORDERED: PT OWN MED DRAWER 7, Y5N ONE ×2 (20:38→21:11)
[2021-02-14 00:05] VITALS: BMI 31.2
[2021-02-14] MEDS: FUROSEMIDE 40 MG/4 ML INJECTABLE VIAL IVPUSH SCH ×2 (06:12→13:06)
[2021-02-14] MEDS ORDERED: PT OWN MED DRAWER 7, Y5N ONE ×3 (09:19→21:51)
[2021-02-14] MEDS: NIFEdipine E.R. 30 MG TABLET PO SCH (09:50)
[2021-02-14] MEDS: POTASSIUM CHLORIDE ORAL LIQUID 20 MEQ/15 ML PO SCH ×2 (09:50→22:33)
[2021-02-14] MEDS: APIXABAN 2.5 MG TABLET PO SCH ×2 (09:50→22:33)
[2021-02-14] MEDS: MULTIVITAMINS (DAILY MVI) TABLET (FP) PO SCH (09:50)
[2021-02-14 09:51] LABS: HEMATOCRIT 39.3 % (32.4-45.2); HEMOGLOBIN 12.9 GM/dL (10.7-15.3); MCH 29.5 pg (25.7-33.7); MCHC 32.8 g/dl (32.0-36.0); MEAN PLT VOLUME 10.3 fl (7.5-11.1); PLATELET COUNT 174 10^3/uL (134-434); RBC 4.37 M/mm3 (3.60-5.2); RDW 16.1 % (11.6-15.6)
[2021-02-14 10:20] LABS: BLOOD UREA NITROGEN 22.6 mg/dL (7-18)
[2021-02-14 10:23] LABS: CREATININE 0.9 mg/dL (0.55-1.3)
[2021-02-14 10:27] LABS: TOT PROT 5.8 g/dl (6.4-8.2)
[2021-02-14 10:30] LABS: ALBUMIN 2.3 g/dl (3.4-5.0)
[2021-02-14] MEDS: SACUBITRIL/VALSARTAN 49 MG-51 MG TABLET PO SCH ×2 (13:06→22:37)
[2021-02-15] MEDS: FUROSEMIDE 40 MG/4 ML INJECTABLE VIAL IVPUSH SCH ×2 (06:44→14:55)
[2021-02-15] MEDS ORDERED: PT OWN MED DRAWER 7, Y5N ONE ×2 (08:53→22:08)
[2021-02-15] MEDS: APIXABAN 2.5 MG TABLET PO SCH (09:33)
[2021-02-15] MEDS: SACUBITRIL/VALSARTAN 49 MG-51 MG TABLET PO SCH ×2 (09:33→22:58)
[2021-02-15] MEDS: POTASSIUM CHLORIDE ORAL LIQUID 20 MEQ/15 ML PO SCH ×2 (09:33→22:58)
[2021-02-15] MEDS: NIFEdipine E.R. 30 MG TABLET PO SCH (09:33)
[2021-02-15] MEDS: MULTIVITAMINS (DAILY MVI) TABLET (FP) PO SCH (09:33)
[2021-02-15] MEDS ORDERED: APIXABAN 2.5 MG TABLET PO SCH (15:28)
[2021-02-15] MEDS ORDERED: FUROSEMIDE 40 MG/4 ML INJECTABLE VIAL IVPUSH ONE (17:00)
[2021-02-15] MEDS: APIXABAN 5 MG TABLET PO SCH (22:58)
[2021-02-16] MEDS: FUROSEMIDE 40 MG/4 ML INJECTABLE VIAL IVPUSH SCH ×2 (06:17→13:24)
[2021-02-16 07:59] LABS: BLOOD UREA NITROGEN 20.7 mg/dL (7-18); CALCIUM 8.5 mg/dL (8.5-10.1)
[2021-02-16 08:03] LABS: CREATININE 0.9 mg/dL (0.55-1.3)
[2021-02-16] MEDS ORDERED: PT OWN MED DRAWER 7, Y5N ONE ×2 (09:22→20:52)
[2021-02-16] MEDS: POTASSIUM CHLORIDE ORAL LIQUID 20 MEQ/15 ML PO SCH ×2 (09:28→21:54)
[2021-02-16] MEDS: SACUBITRIL/VALSARTAN 49 MG-51 MG TABLET PO SCH ×2 (09:29→21:54)
[2021-02-16] MEDS: NIFEdipine E.R. 30 MG TABLET PO SCH (09:29)
[2021-02-16] MEDS: APIXABAN 5 MG TABLET PO SCH ×2 (09:29→21:54)
[2021-02-16] MEDS: MULTIVITAMINS (DAILY MVI) TABLET (FP) PO SCH (09:29)
[2021-02-17] MEDS: FUROSEMIDE 40 MG/4 ML INJECTABLE VIAL IVPUSH SCH ×2 (06:16→15:02)
[2021-02-17 07:19] LABS: BLOOD UREA NITROGEN 20.9 mg/dL (7-18); MAGNESIUM 1.8 mg/dL (1.8-2.4)
[2021-02-17 07:22] LABS: CALCIUM 8.1 mg/dL (8.5-10.1)
[2021-02-17 07:23] LABS: CREATININE 1.1 mg/dL (0.55-1.3)
[2021-02-17 08:09] LABS: EOS % 2.4 % (0-4.5); HEMATOCRIT 40.6 % (32.4-45.2); HEMOGLOBIN 13.2 GM/dL (10.7-15.3); LYMPH % 24.9 % (8-40); MCH 29.6 pg (25.7-33.7); MCHC 32.4 g/dl (32.0-36.0); MEAN CELL VOLUME 91.3 fl (80-96); MEAN PLT VOLUME 10.7 fl (7.5-11.1); NEUT % 60.7 % (42.8-82.8); PLATELET COUNT 150 10^3/uL (134-434); RBC 4.45 M/mm3 (3.60-5.2); RDW 16.1 % (11.6-15.6); WHITE BLOOD COUNT 6.2 K/mm3 (4.0-10.0)
[2021-02-17] MEDS: MULTIVITAMINS (DAILY MVI) TABLET (FP) PO SCH (10:05)
[2021-02-17] MEDS: SACUBITRIL/VALSARTAN 49 MG-51 MG TABLET PO SCH ×2 (10:05→22:00)
[2021-02-17] MEDS: NIFEdipine E.R. 30 MG TABLET PO SCH (10:05)
[2021-02-17] MEDS: POTASSIUM CHLORIDE ORAL LIQUID 20 MEQ/15 ML PO SCH ×2 (10:05→22:00)
[2021-02-17] MEDS: APIXABAN 5 MG TABLET PO SCH ×2 (10:05→22:00)
[2021-02-18] MEDS: FUROSEMIDE 40 MG/4 ML INJECTABLE VIAL IVPUSH SCH ×2 (06:04→14:52)
[2021-02-18] MEDS: MULTIVITAMINS (DAILY MVI) TABLET (FP) PO SCH (09:27)
[2021-02-18] MEDS: APIXABAN 5 MG TABLET PO SCH ×2 (09:27→20:05)
[2021-02-18] MEDS: POTASSIUM CHLORIDE ORAL LIQUID 20 MEQ/15 ML PO SCH ×2 (09:27→20:05)
[2021-02-18] MEDS: NIFEdipine E.R. 30 MG TABLET PO SCH (09:27)
[2021-02-18] MEDS: SACUBITRIL/VALSARTAN 49 MG-51 MG TABLET PO SCH (09:28)
[2021-02-18 20:49] VITALS: BP 121/68; PULSE 78; TEMP 98.5
== END 2021-02-18 20:45 | disposition home or self-care (01) | DRG 291 ==
LOC: JER 11:35 → JERBED 14:14 → J4W 20:36
PROVIDERS: ADMIT Internal Medicine; ATTEND Internal Medicine
DX: I13.0 Hypertensive heart and chronic kidney disease with heart failure and stage 1 through stage 4 chronic kidney disease, or unspecified chronic kidney disease (principal); J96.01 Acute respiratory failure with hypoxia; I50.33 Acute on chronic diastolic (congestive) heart failure; N17.9 Acute kidney failure, unspecified; I48.19 Other persistent atrial fibrillation; J98.11 Atelectasis; N18.9 Chronic kidney disease, unspecified; J44.9 Chronic obstructive pulmonary disease, unspecified; Z79.01 Long term (current) use of anticoagulants; I36.1 Nonrheumatic tricuspid (valve) insufficiency; E66.09 Other obesity due to excess calories; Z68.30 Body mass index [BMI] 30.0-30.9, adult; I27.20 Pulmonary hypertension, unspecified
CPT/HCPCS: 36415; 71045-TC-FY; 80048; 80053; 80061; 82962; 83036; 83735; 83880; 84443; 84484; 85025; 85027; 85610; 85730; 93005; 93010; 93306-TC; 94640; 94660; 94761; 97116-GP; 97162-GP; 99285-25; C9803; U0003; U0005

== ENCOUNTER 2021-04-29 15:22 | Inpatient (IN) | payer OTHER ==
[2021-04-29 15:51] VITALS: BMI 33.4
[2021-04-29] MEDS ORDERED: ALBUTEROL SO4 2.5/IPRATROPIUM 0.5 INH SOL 3 ML VIAL.NEB. NEB ONE ×2 (16:04→16:08)
[2021-04-29] MEDS ORDERED: DEXAMETHASONE SOD PHOSPHATE 10 MG/1 ML VIAL IVPUSH ONE (16:18)
[2021-04-29] MEDS ORDERED: DEXAMETHASONE SOD PHOSPHATE 10 MG/1 ML VIAL ONE (16:40)
[2021-04-29 16:53] LABS: VENOUS BASE EXCESS 1.2 mmol/L (-2-2); VENOUS O2 SATURATION 58.7 % (70-80); VENOUS PCO2 56.4 mmHg (38-52); VENOUS PH 7.319 (7.310-7.410)
[2021-04-29 16:54] LABS: BASO % 0.5 % (0-2.0); EOS % 0.6 % (0-4.5); HEMATOCRIT 39.4 % (32.4-45.2); HEMOGLOBIN 12.7 GM/dL (10.7-15.3); LYMPH % 22.1 % (8-40); MCH 29.3 pg (25.7-33.7); MCHC 32.1 g/dl (32.0-36.0); MEAN PLT VOLUME 10.8 fl (7.5-11.1); NEUT % 60.8 % (42.8-82.8); PLATELET COUNT 149 10^3/uL (134-434); RBC 4.32 M/mm3 (3.60-5.2); WHITE BLOOD COUNT 6.5 K/mm3 (4.0-10.0)
[2021-04-29 17:12] LABS: CHLORIDE 102 mmol/L (98-107); SODIUM 133 mmol/L (136-145)
[2021-04-29 17:14] LABS: CALCIUM 8.9 mg/dL (8.5-10.1)
[2021-04-29 17:15] LABS: BLOOD UREA NITROGEN 25.1 mg/dL (7-18); CO2 27 mmol/L (21-32); GLUCOSE,RANDOM 108 mg/dL (74-106)
[2021-04-29 17:18] LABS: CREATININE 1.6 mg/dL (0.55-1.3)
[2021-04-29 17:20] LABS: BILIRUBIN,TOTAL 1.5 mg/dL (0.2-1); TOT PROT 9.3 g/dl (6.4-8.2)
[2021-04-29 17:21] LABS: ALK PHOS 60 U/L (45-117)
[2021-04-29 17:23] LABS: N-TERMINAL BNP 3310.8 pg/ml (5-450)
[2021-04-29 17:27] LABS: ANION GAP 4 MMOL/L (8-16); SGOT/AST 132 U/L (15-37); SGPT/ALT 32 U/L (13-61)
[2021-04-29] MEDS ORDERED: FUROSEMIDE 40 MG/4 ML INJECTABLE VIAL IVPUSH ONE (17:31)
[2021-04-29 17:43] LABS: ACTIVATED PTT 39.1 SECONDS (25.2-36.5); INR 1.64 (0.83-1.09)
[2021-04-29] MEDS ORDERED: FUROSEMIDE 40 MG/4 ML INJECTABLE VIAL ONE (18:09)
[2021-04-29 18:43] LABS: CALCIUM 8.8 mg/dL (8.5-10.1)
[2021-04-29 18:44] LABS: BLOOD UREA NITROGEN 25.6 mg/dL (7-18)
[2021-04-29 18:47] LABS: CREATININE 1.5 mg/dL (0.55-1.3)
[2021-04-29] MEDS ORDERED: NAPROXEN 500 MG TABLET ONE (20:28)
[2021-04-29] MEDS ORDERED: POLYETHYLENE GLYCOL (HEALTHYLAX) 3350 17 GM PACKET PO PRN (20:29)
[2021-04-29] MEDS ORDERED: ACETAMINOPHEN 325 MG TABLET (FP) PO PRN (20:29)
[2021-04-29] MEDS ORDERED: APIXABAN 2.5 MG TABLET ONE (23:22)
[2021-04-29] MEDS: APIXABAN 2.5 MG TABLET PO SCH (23:27)
[2021-04-29] MEDS: GABAPENTIN 300 MG CAPSULE PO SCH (23:28)
[2021-04-29] MEDS: INSULIN SLIDING SCALE (NOVOLOG) 1 VIAL SQ SCH (23:34)
[2021-04-30] MEDS: GABAPENTIN 300 MG CAPSULE PO SCH (07:05)
[2021-04-30] MEDS: INSULIN SLIDING SCALE (NOVOLOG) 1 VIAL SQ SCH ×4 (07:56→22:23)
[2021-04-30 08:57] LABS: BASO % 0.2 % (0-2.0); HEMATOCRIT 37.8 % (32.4-45.2); HEMOGLOBIN 12.2 GM/dL (10.7-15.3); LYMPH % 14.5 % (8-40); MCH 29.3 pg (25.7-33.7); MCHC 32.1 g/dl (32.0-36.0); MEAN CELL VOLUME 91.2 fl (80-96); MEAN PLT VOLUME 10.6 fl (7.5-11.1); MONO % 7.7 % (3.8-10.2); NEUT % 77.6 % (42.8-82.8); PLATELET COUNT 137 10^3/uL (134-434); RBC 4.15 M/mm3 (3.60-5.2); RDW 17.1 % (11.6-15.6); WHITE BLOOD COUNT 4.6 K/mm3 (4.0-10.0)
[2021-04-30 09:01] LABS: CALCIUM 8.5 mg/dL (8.5-10.1)
[2021-04-30 09:02] LABS: BLOOD UREA NITROGEN 29.7 mg/dL (7-18); MAGNESIUM 2.3 mg/dL (1.8-2.4)
[2021-04-30 09:05] LABS: CREATININE 1.4 mg/dL (0.55-1.3)
[2021-04-30] MEDS: methylPREDNISolone NA SUCC 40 MG/1 ML VIAL IVPUSH SCH ×3 (09:50→21:19)
[2021-04-30] MEDS ORDERED: ALBUTEROL SO4 HFA INHALER IH PRN (10:00)
[2021-04-30] MEDS: APIXABAN 2.5 MG TABLET PO SCH ×2 (10:50→21:20)
[2021-04-30] MEDS ORDERED: FUROSEMIDE 40 MG TABLET (FP) ONE (11:01)
[2021-04-30] MEDS ORDERED: APIXABAN 2.5 MG TABLET ONE (11:01)
[2021-04-30] MEDS ORDERED: MULTIVITAMINS (DAILY MVI) TABLET (FP) ONE (11:01)
[2021-04-30] MEDS ORDERED: methylPREDNISolone NA SUCC 40 MG/1 ML VIAL ONE (11:02)
[2021-04-30] MEDS: NIFEdipine E.R. 90 MG TABLET PO SCH (11:18)
[2021-04-30] MEDS: MULTIVITAMINS (DAILY MVI) TABLET (FP) PO SCH (11:18)
[2021-04-30] MEDS: FUROSEMIDE 40 MG TABLET (FP) PO SCH (11:18)
[2021-04-30] MEDS: ALBUTEROL SO4 2.5/IPRATROPIUM 0.5 INH SOL 3 ML VIAL.NEB. NEB SCH ×2 (15:47→20:55)
[2021-04-30] MEDS: SACUBITRIL/VALSARTAN 49 MG-51 MG TABLET PO SCH (21:20)
[2021-05-01] MEDS: methylPREDNISolone NA SUCC 40 MG/1 ML VIAL IVPUSH SCH ×4 (03:44→21:06)
[2021-05-01] MEDS: INSULIN SLIDING SCALE (NOVOLOG) 1 VIAL SQ SCH ×4 (06:40→21:55)
[2021-05-01 07:07] LABS: BASO % 0.1 % (0-2.0); HEMATOCRIT 39.8 % (32.4-45.2); HEMOGLOBIN 12.5 GM/dL (10.7-15.3); LYMPH % 8.1 % (8-40); MCH 28.6 pg (25.7-33.7); MCHC 31.5 g/dl (32.0-36.0); MEAN CELL VOLUME 90.7 fl (80-96); MEAN PLT VOLUME 10.6 fl (7.5-11.1); MONO % 8.4 % (3.8-10.2); NEUT % 83.4 % (42.8-82.8); PLATELET COUNT 167 10^3/uL (134-434); RBC 4.39 M/mm3 (3.60-5.2); RDW 16.3 % (11.6-15.6); WHITE BLOOD COUNT 5.5 K/mm3 (4.0-10.0)
[2021-05-01 07:28] LABS: BLOOD UREA NITROGEN 38.8 mg/dL (7-18); MAGNESIUM 2.4 mg/dL (1.8-2.4)
[2021-05-01 07:31] LABS: CREATININE 1.3 mg/dL (0.55-1.3)
[2021-05-01] MEDS: ALBUTEROL SO4 2.5/IPRATROPIUM 0.5 INH SOL 3 ML VIAL.NEB. NEB SCH ×4 (08:05→20:30)
[2021-05-01] MEDS: AZITHROMYCIN IVPB 250 MG in DEXTROSE 5%-WATER - 250 ML IVPB SCH (09:22)
[2021-05-01] MEDS: metoPROLOL SUCCINATE 25 MG TAB.SR.24H (FP) PO SCH (09:23)
[2021-05-01] MEDS: FUROSEMIDE 40 MG TABLET (FP) PO SCH (09:23)
[2021-05-01] MEDS: NIFEdipine E.R. 90 MG TABLET PO SCH (09:23)
[2021-05-01] MEDS: APIXABAN 2.5 MG TABLET PO SCH ×2 (09:23→21:54)
[2021-05-01] MEDS: SACUBITRIL/VALSARTAN 49 MG-51 MG TABLET PO SCH ×2 (09:23→21:54)
[2021-05-01] MEDS: MULTIVITAMINS (DAILY MVI) TABLET (FP) PO SCH (09:23)
[2021-05-01] MEDS: guaiFENesin/CODEINE 5 ML UNIT-DOSE CUPS PO PRN (13:06)
[2021-05-02] MEDS: methylPREDNISolone NA SUCC 40 MG/1 ML VIAL IVPUSH SCH ×4 (03:15→23:04)
[2021-05-02] MEDS: INSULIN SLIDING SCALE (NOVOLOG) 1 VIAL SQ SCH ×3 (06:00→17:10)
[2021-05-02 07:41] LABS: HEMOGLOBIN 13.1 GM/dL (10.7-15.3); LYMPH % 9.3 % (8-40); MCH 29.4 pg (25.7-33.7); MCHC 32.7 g/dl (32.0-36.0); MEAN CELL VOLUME 89.8 fl (80-96); MONO % 9.2 % (3.8-10.2); NEUT % 81.5 % (42.8-82.8); PLATELET COUNT 170 10^3/uL (134-434); RBC 4.46 M/mm3 (3.60-5.2); RDW 16.7 % (11.6-15.6); WHITE BLOOD COUNT 5.8 K/mm3 (4.0-10.0)
[2021-05-02] MEDS: ALBUTEROL SO4 2.5/IPRATROPIUM 0.5 INH SOL 3 ML VIAL.NEB. NEB SCH ×4 (08:00→19:27)
[2021-05-02 08:07] LABS: CALCIUM 8.4 mg/dL (8.5-10.1)
[2021-05-02 08:08] LABS: BLOOD UREA NITROGEN 40.6 mg/dL (7-18); MAGNESIUM 2.4 mg/dL (1.8-2.4)
[2021-05-02 08:11] LABS: CREATININE 1.2 mg/dL (0.55-1.3)
[2021-05-02] MEDS: FUROSEMIDE 40 MG TABLET (FP) PO SCH (09:19)
[2021-05-02] MEDS: NIFEdipine E.R. 90 MG TABLET PO SCH (09:19)
[2021-05-02] MEDS: APIXABAN 2.5 MG TABLET PO SCH ×2 (09:19→21:38)
[2021-05-02] MEDS: MULTIVITAMINS (DAILY MVI) TABLET (FP) PO SCH (09:20)
[2021-05-02] MEDS: metoPROLOL SUCCINATE 25 MG TAB.SR.24H (FP) PO SCH (09:20)
[2021-05-02] MEDS: AZITHROMYCIN IVPB 250 MG in DEXTROSE 5%-WATER - 250 ML IVPB SCH (09:20)
[2021-05-02] MEDS: SACUBITRIL/VALSARTAN 49 MG-51 MG TABLET PO SCH ×2 (11:12→21:37)
[2021-05-03] MEDS: methylPREDNISolone NA SUCC 40 MG/1 ML VIAL IVPUSH SCH ×3 (06:33→17:37)
[2021-05-03] MEDS: INSULIN SLIDING SCALE (NOVOLOG) 1 VIAL SQ SCH ×5 (06:34→21:21)
[2021-05-03 06:43] LABS: BASO % 0.2 % (0-2.0); HEMATOCRIT 41.8 % (32.4-45.2); HEMOGLOBIN 13.2 GM/dL (10.7-15.3); LYMPH % 8.2 % (8-40); MCH 28.6 pg (25.7-33.7); MCHC 31.6 g/dl (32.0-36.0); MEAN CELL VOLUME 90.5 fl (80-96); MONO % 7.2 % (3.8-10.2); NEUT % 84.4 % (42.8-82.8); PLATELET COUNT 198 10^3/uL (134-434); RBC 4.62 M/mm3 (3.60-5.2); WHITE BLOOD COUNT 5.6 K/mm3 (4.0-10.0)
[2021-05-03 07:01] LABS: BLOOD UREA NITROGEN 43.2 mg/dL (7-18); CALCIUM 8.7 mg/dL (8.5-10.1)
[2021-05-03 07:05] LABS: CREATININE 1.1 mg/dL (0.55-1.3)
[2021-05-03] MEDS: ALBUTEROL SO4 2.5/IPRATROPIUM 0.5 INH SOL 3 ML VIAL.NEB. NEB SCH ×4 (07:50→20:09)
[2021-05-03] MEDS: guaiFENesin/CODEINE 5 ML UNIT-DOSE CUPS PO PRN ×2 (09:26→21:02)
[2021-05-03] MEDS: NIFEdipine E.R. 90 MG TABLET PO SCH (09:27)
[2021-05-03] MEDS: FUROSEMIDE 40 MG TABLET (FP) PO SCH (09:27)
[2021-05-03] MEDS: metoPROLOL SUCCINATE 25 MG TAB.SR.24H (FP) PO SCH (09:27)
[2021-05-03] MEDS: APIXABAN 2.5 MG TABLET PO SCH ×2 (09:27→21:01)
[2021-05-03] MEDS: MULTIVITAMINS (DAILY MVI) TABLET (FP) PO SCH (09:27)
[2021-05-03] MEDS: SACUBITRIL/VALSARTAN 49 MG-51 MG TABLET PO SCH ×2 (09:27→21:15)
[2021-05-03] MEDS: AZITHROMYCIN IVPB 250 MG in DEXTROSE 5%-WATER - 250 ML IVPB SCH (09:28)
[2021-05-03] MEDS ORDERED: methylPREDNISolone NA SUCC 40 MG/1 ML VIAL IVPUSH SCH (12:00)
[2021-05-04] MEDS: methylPREDNISolone NA SUCC 40 MG/1 ML VIAL IVPUSH SCH ×3 (01:05→17:04)
[2021-05-04] MEDS: INSULIN SLIDING SCALE (NOVOLOG) 1 VIAL SQ SCH ×4 (06:15→22:38)
[2021-05-04] MEDS: ALBUTEROL SO4 2.5/IPRATROPIUM 0.5 INH SOL 3 ML VIAL.NEB. NEB SCH ×3 (08:20→20:50)
[2021-05-04 08:46] LABS: BASO % 0.4 % (0-2.0); HEMATOCRIT 40.6 % (32.4-45.2); HEMOGLOBIN 13.4 GM/dL (10.7-15.3); LYMPH % 6.9 % (8-40); MCH 29.4 pg (25.7-33.7); MEAN PLT VOLUME 9.8 fl (7.5-11.1); MONO % 5.8 % (3.8-10.2); NEUT % 86.9 % (42.8-82.8); PLATELET COUNT 158 10^3/uL (134-434); RBC 4.56 M/mm3 (3.60-5.2); RDW 16.8 % (11.6-15.6); WHITE BLOOD COUNT 6.5 K/mm3 (4.0-10.0)
[2021-05-04 09:18] LABS: BLOOD UREA NITROGEN 37.5 mg/dL (7-18); CALCIUM 8.4 mg/dL (8.5-10.1)
[2021-05-04 09:21] LABS: CREATININE 0.9 mg/dL (0.55-1.3)
[2021-05-04] MEDS: NIFEdipine E.R. 90 MG TABLET PO SCH (09:21)
[2021-05-04] MEDS: MULTIVITAMINS (DAILY MVI) TABLET (FP) PO SCH (09:21)
[2021-05-04] MEDS: FUROSEMIDE 40 MG TABLET (FP) PO SCH (09:21)
[2021-05-04] MEDS: metoPROLOL SUCCINATE 25 MG TAB.SR.24H (FP) PO SCH (09:21)
[2021-05-04] MEDS: APIXABAN 2.5 MG TABLET PO SCH ×2 (09:21→20:59)
[2021-05-04] MEDS: SACUBITRIL/VALSARTAN 49 MG-51 MG TABLET PO SCH ×2 (09:21→22:44)
[2021-05-05] MEDS: methylPREDNISolone NA SUCC 40 MG/1 ML VIAL IVPUSH SCH ×3 (02:47→21:38)
[2021-05-05] MEDS: INSULIN SLIDING SCALE (NOVOLOG) 1 VIAL SQ SCH ×4 (06:02→21:42)
[2021-05-05] MEDS: ALBUTEROL SO4 2.5/IPRATROPIUM 0.5 INH SOL 3 ML VIAL.NEB. NEB SCH ×2 (08:03→12:50)
[2021-05-05] MEDS: FUROSEMIDE 40 MG TABLET (FP) PO SCH (10:00)
[2021-05-05] MEDS: APIXABAN 2.5 MG TABLET PO SCH ×2 (10:00→21:37)
[2021-05-05] MEDS: MULTIVITAMINS (DAILY MVI) TABLET (FP) PO SCH (10:01)
[2021-05-05] MEDS: SACUBITRIL/VALSARTAN 49 MG-51 MG TABLET PO SCH ×2 (10:01→22:13)
[2021-05-05] MEDS: NIFEdipine E.R. 90 MG TABLET PO SCH (10:01)
[2021-05-05] MEDS: metoPROLOL SUCCINATE 25 MG TAB.SR.24H (FP) PO SCH (10:01)
[2021-05-06] MEDS: INSULIN SLIDING SCALE (NOVOLOG) 1 VIAL SQ SCH ×2 (05:59→12:17)
[2021-05-06 07:13] LABS: BASO % 0.2 % (0-2.0); EOS % 0.5 % (0-4.5); HEMATOCRIT 46.5 % (32.4-45.2); HEMOGLOBIN 15.1 GM/dL (10.7-15.3); LYMPH % 9.5 % (8-40); MCHC 32.6 g/dl (32.0-36.0); MEAN PLT VOLUME 9.6 fl (7.5-11.1); MONO % 5.8 % (3.8-10.2); PLATELET COUNT 184 10^3/uL (134-434); RBC 5.22 M/mm3 (3.60-5.2); RDW 16.5 % (11.6-15.6); WHITE BLOOD COUNT 8.4 K/mm3 (4.0-10.0)
[2021-05-06 07:40] LABS: CALCIUM 8.7 mg/dL (8.5-10.1)
[2021-05-06 07:41] LABS: MAGNESIUM 2.3 mg/dL (1.8-2.4)
[2021-05-06 07:44] LABS: CREATININE 0.9 mg/dL (0.55-1.3)
[2021-05-06] MEDS: methylPREDNISolone NA SUCC 40 MG/1 ML VIAL IVPUSH SCH (09:32)
[2021-05-06] MEDS: metoPROLOL SUCCINATE 25 MG TAB.SR.24H (FP) PO SCH (09:33)
[2021-05-06] MEDS: FUROSEMIDE 40 MG TABLET (FP) PO SCH (09:33)
[2021-05-06] MEDS: APIXABAN 2.5 MG TABLET PO SCH (09:33)
[2021-05-06] MEDS: SACUBITRIL/VALSARTAN 49 MG-51 MG TABLET PO SCH (09:33)
[2021-05-06] MEDS: MULTIVITAMINS (DAILY MVI) TABLET (FP) PO SCH (09:33)
[2021-05-06] MEDS: NIFEdipine E.R. 90 MG TABLET PO SCH (09:33)
[2021-05-06] MEDS ORDERED: predniSONE 10 MG TABLET (UD) PO SCH (13:30)
[2021-05-06 14:41] VITALS: BP 105/63; PULSE 98; TEMP 98
== END 2021-05-06 18:31 | disposition home health service (06) | DRG 291 ==
LOC: JER 15:22 → JERBED 17:29 → J4W 04-30 13:58
PROVIDERS: ADMIT Internal Medicine; ATTEND Internal Medicine
DX: I13.0 Hypertensive heart and chronic kidney disease with heart failure and stage 1 through stage 4 chronic kidney disease, or unspecified chronic kidney disease (principal); J96.21 Acute and chronic respiratory failure with hypoxia; J96.22 Acute and chronic respiratory failure with hypercapnia; I50.33 Acute on chronic diastolic (congestive) heart failure; N17.9 Acute kidney failure, unspecified; I48.19 Other persistent atrial fibrillation; J44.1 Chronic obstructive pulmonary disease with (acute) exacerbation; E78.5 Hyperlipidemia, unspecified; N18.9 Chronic kidney disease, unspecified; E78.00 Pure hypercholesterolemia, unspecified; E66.09 Other obesity due to excess calories; Z68.33 Body mass index [BMI] 33.0-33.9, adult; R26.2 Difficulty in walking, not elsewhere classified; M25.562 Pain in left knee; I25.119 Atherosclerotic heart disease of native coronary artery with unspecified angina pectoris; I07.1 Rheumatic tricuspid insufficiency; W18.39XA Other fall on same level, initial encounter; Y92.098 Other place in other non-institutional residence as the place of occurrence of the external cause; Z79.01 Long term (current) use of anticoagulants; Z99.81 Dependence on supplemental oxygen
CPT/HCPCS: 36415; 71045-TC-FY; 71250-TC; 73560-TC-LT-FY; 73590-TC-LT-FY; 80048; 80053; 82803; 82962; 83735; 83880; 84484; 85025; 85610; 85730; 87804; 93005; 93010; 93970-TC; 94640; 94660; 97162-GP; 99285-25; C9803; J1100; U0003; U0005

== ENCOUNTER 2021-07-29 16:24 | Inpatient (IN) | payer OTHER ==
[2021-07-29] MEDS ORDERED: ACETAMINOPHEN 1000 MG/100 ML BAG IVPB ONE (17:47)
[2021-07-29] MEDS ORDERED: ALBUTEROL SO4 2.5/IPRATROPIUM 0.5 INH SOL 3 ML VIAL.NEB. NEB ONE ×2 (17:48→17:50)
[2021-07-29] MEDS ORDERED: ACETAMINOPHEN INJECTION 100 ML IVPB ONE (17:50)
[2021-07-29] MEDS ORDERED: CEFEPIME HCL/D5W 2 GM/50 ML BAG IVPB ONE (18:33)
[2021-07-29] MEDS ORDERED: CEFEPIME 2 GM/100 ML BAG IVPB ONE (18:39)
[2021-07-29 18:41] LABS: BASO % 0.8 % (0-2.0); EOS % 1.4 % (0-4.5); HEMATOCRIT 34.4 % (32.4-45.2); HEMOGLOBIN 10.9 GM/dL (10.7-15.3); LYMPH % 20.9 % (8-40); MCH 28.8 pg (25.7-33.7); MCHC 31.8 g/dl (32.0-36.0); MEAN CELL VOLUME 90.6 fl (80-96); MEAN PLT VOLUME 11.2 fl (7.5-11.1); MONO % 10.9 % (3.8-10.2); PLATELET COUNT 119 10^3/uL (134-434); RBC 3.79 M/mm3 (3.60-5.2); RDW 17.3 % (11.6-15.6); WHITE BLOOD COUNT 5.1 K/mm3 (4.0-10.0)
[2021-07-29 18:46] LABS: INR 2.74 (0.83-1.09); PROTHROMBIN TIME (PATIENT) 31.8 SEC (9.7-13.0)
[2021-07-29 18:49] LABS: ACTIVATED PTT 36.6 SECONDS (25.2-36.5)
[2021-07-29 18:52] LABS: VENOUS BASE EXCESS 0.9 mmol/L (-2-2); VENOUS O2 SATURATION 69.2 % (70-80); VENOUS PCO2 42.4 mmHg (38-52); VENOUS PH 7.402 (7.310-7.410)
[2021-07-29 18:54] LABS: CHLORIDE 108 mmol/L (98-107); SODIUM 142 mmol/L (136-145)
[2021-07-29 18:55] LABS: CALCIUM 8.5 mg/dL (8.5-10.1)
[2021-07-29 18:56] LABS: ALBUMIN 3.3 g/dl (3.4-5.0); ANION GAP 4 MMOL/L (8-16); BLOOD UREA NITROGEN 28.9 mg/dL (7-18); CO2 30 mmol/L (21-32); GLUCOSE,RANDOM 129 mg/dL (74-106)
[2021-07-29 18:59] LABS: CREATININE 1.7 mg/dL (0.55-1.3); SGOT/AST 30 U/L (15-37); SGPT/ALT 17 U/L (13-61)
[2021-07-29 19:01] LABS: BILIRUBIN,TOTAL 1.3 mg/dL (0.2-1); TOT PROT 7.2 g/dl (6.4-8.2)
[2021-07-29 19:02] LABS: ALK PHOS 62 U/L (45-117); LACTIC ACID 2.2 mmol/L (0.4-2.0)
[2021-07-29] MEDS ORDERED: ASPIRIN 81 MG CHEWABLE TABLETS PO ONE (19:18)
[2021-07-29] MEDS ORDERED: FUROSEMIDE 40 MG/4 ML INJECTABLE VIAL IVPUSH ONE (19:22)
[2021-07-29] MEDS ORDERED: VANCOMYCIN/WATER 1,250 MG/250 ML BAG IVPB ONE (19:22)
[2021-07-29] MEDS: ALBUTEROL SO4 2.5/IPRATROPIUM 0.5 INH SOL 3 ML VIAL.NEB. NEB SCH ×2 (21:26→21:27)
[2021-07-29] MEDS ORDERED: ASPIRIN 81 MG CHEWABLE TABLETS ONE (21:32)
[2021-07-29] MEDS ORDERED: FUROSEMIDE 40 MG/4 ML INJECTABLE VIAL ONE (21:33)
[2021-07-30 06:12] LABS: URINE APPEARANCE CLOUDY; URINE BILIRUBIN 1+ (NEGATIVE); URINE COLOR DK YELLOW; URINE GLUCOSE (UA) NEGATIVE (NEGATIVE); URINE KETONE TRACE (NEGATIVE); URINE LEUK ESTERASE NEGATIVE (NEGATIVE); URINE NITRITE NEGATIVE (NEGATIVE); URINE PROTEIN TRACE (NEGATIVE); URINE UROBILINOGEN 0.2 mg/dL (0.2-1.0)
[2021-07-30 07:44] LABS: EOS % 3.3 % (0-4.5); HEMATOCRIT 34.7 % (32.4-45.2); LYMPH % 21.6 % (8-40); MCH 28.9 pg (25.7-33.7); MCHC 31.8 g/dl (32.0-36.0); MEAN CELL VOLUME 90.8 fl (80-96); MEAN PLT VOLUME 10.9 fl (7.5-11.1); MONO % 11.5 % (3.8-10.2); NEUT % 62.6 % (42.8-82.8); PLATELET COUNT 109 10^3/uL (134-434); RBC 3.83 M/mm3 (3.60-5.2); WHITE BLOOD COUNT 5.7 K/mm3 (4.0-10.0)
[2021-07-30 08:02] LABS: CHLORIDE 108 mmol/L (98-107); SODIUM 145 mmol/L (136-145)
[2021-07-30 08:05] LABS: CALCIUM 8.6 mg/dL (8.5-10.1)
[2021-07-30 08:06] LABS: ALBUMIN 3.3 g/dl (3.4-5.0); ANION GAP 7 MMOL/L (8-16); BLOOD UREA NITROGEN 32.1 mg/dL (7-18); CO2 30 mmol/L (21-32); GLUCOSE,RANDOM 95 mg/dL (74-106); MAGNESIUM 2.3 mg/dL (1.8-2.4)
[2021-07-30 08:08] LABS: CREATININE 1.7 mg/dL (0.55-1.3); SGOT/AST 23 U/L (15-37); SGPT/ALT 16 U/L (13-61)
[2021-07-30 08:10] LABS: BILIRUBIN,TOTAL 1.3 mg/dL (0.2-1); TOT PROT 6.9 g/dl (6.4-8.2)
[2021-07-30 08:12] LABS: ALK PHOS 58 U/L (45-117)
[2021-07-30] MEDS ORDERED: metoPROLOL SUCCINATE 25 MG TAB.SR.24H (FP) ONE (09:13)
[2021-07-30] MEDS ORDERED: CEFEPIME 2 GM/100 ML BAG IVPB ONE (09:14)
[2021-07-30] MEDS ORDERED: MULTIVITAMINS (DAILY MVI) TABLET (FP) ONE (09:14)
[2021-07-30] MEDS ORDERED: GABAPENTIN 300 MG CAPSULE ONE (09:14)
[2021-07-30] MEDS: metoPROLOL SUCCINATE 25 MG TAB.SR.24H (FP) PO SCH (09:22)
[2021-07-30] MEDS: GABAPENTIN 300 MG CAPSULE PO SCH (09:22)
[2021-07-30] MEDS: MULTIVITAMINS (DAILY MVI) TABLET (FP) PO SCH (09:22)
[2021-07-30] MEDS ORDERED: APIXABAN 2.5 MG TABLET ONE (09:24)
[2021-07-30] MEDS ORDERED: ALBUTEROL SO4 HFA INHALER IH ONE (09:24)
[2021-07-30] MEDS ORDERED: FUROSEMIDE 40 MG/4 ML INJECTABLE VIAL ONE (09:24)
[2021-07-30] MEDS ORDERED: POTASSIUM CHLORIDE TABS 20 MEQ TABLET.ER (FP) PO ONE (09:24)
[2021-07-30] MEDS: FUROSEMIDE 40 MG/4 ML INJECTABLE VIAL IVPUSH SCH (09:35)
[2021-07-30] MEDS: APIXABAN 2.5 MG TABLET PO SCH ×2 (09:35→21:34)
[2021-07-30] MEDS: ALBUTEROL SO4 HFA INHALER IH PRN ×2 (09:36→15:49)
[2021-07-30] MEDS: SACUBITRIL/VALSARTAN 49 MG-51 MG TABLET PO SCH ×2 (09:38→21:33)
[2021-07-30] MEDS: NIFEdipine E.R. 90 MG TABLET PO SCH (09:38)
[2021-07-30] MEDS ORDERED: CEFEPIME 2 GM in DEXTROSE 5%-WATER 2 GM/100 ML BAG IVPB SCH (10:00)
[2021-07-30] MEDS ORDERED: VANCOMYCIN 1 GRAM (PRE-DOCKED) 1,000 MG/250 ML BAG IVPB SCH (10:00)
[2021-07-30] MEDS: POTASSIUM CHLORIDE TABS 20 MEQ TABLET.ER (FP) PO SCH (10:42)
[2021-07-30] MEDS: ALBUTEROL SO4 2.5/IPRATROPIUM 0.5 INH SOL 3 ML VIAL.NEB. NEB SCH (20:19)
[2021-07-30] MEDS ORDERED: DEXTROSE 5%-WATER 100 ML IVPB ONE (21:04)
[2021-07-30] MEDS ORDERED: CEFEPIME HCL 2 GM VIAL (RESTRICTED TO ID) ONE (21:04)
[2021-07-30] MEDS: CEFEPIME 2 GM in DEXTROSE 5%-WATER 100 ML IVPB SCH (21:33)
[2021-07-30] MEDS ORDERED: VANCOMYCIN/WATER FOR INJ (PEG) 1,000 MG/200 ML BAG IVPB SCH (22:00)
[2021-07-31 07:40] LABS: BASO % 0.7 % (0-2.0); EOS % 6.2 % (0-4.5); HEMATOCRIT 31.1 % (32.4-45.2); HEMOGLOBIN 10.2 GM/dL (10.7-15.3); LYMPH % 20.5 % (8-40); MCH 29.4 pg (25.7-33.7); MCHC 32.7 g/dl (32.0-36.0); MEAN PLT VOLUME 10.4 fl (7.5-11.1); MONO % 12.6 % (3.8-10.2); PLATELET COUNT 106 10^3/uL (134-434); RBC 3.45 M/mm3 (3.60-5.2); WHITE BLOOD COUNT 4.9 K/mm3 (4.0-10.0)
[2021-07-31] MEDS: ALBUTEROL SO4 2.5/IPRATROPIUM 0.5 INH SOL 3 ML VIAL.NEB. NEB SCH ×4 (07:40→20:28)
[2021-07-31 07:57] LABS: CALCIUM 8.4 mg/dL (8.5-10.1)
[2021-07-31 08:01] LABS: CREATININE 1.5 mg/dL (0.55-1.3)
[2021-07-31] MEDS ORDERED: DEXTROSE 5%-WATER 100 ML IVPB ONE ×2 (10:15→22:02)
[2021-07-31] MEDS ORDERED: CEFEPIME HCL 2 GM VIAL (RESTRICTED TO ID) ONE ×2 (10:15→22:02)
[2021-07-31] MEDS: MULTIVITAMINS (DAILY MVI) TABLET (FP) PO SCH (10:18)
[2021-07-31] MEDS: GABAPENTIN 300 MG CAPSULE PO SCH (10:18)
[2021-07-31] MEDS: POTASSIUM CHLORIDE TABS 20 MEQ TABLET.ER (FP) PO SCH (10:18)
[2021-07-31] MEDS: APIXABAN 2.5 MG TABLET PO SCH ×2 (10:18→22:17)
[2021-07-31] MEDS: CEFEPIME 2 GM in DEXTROSE 5%-WATER 100 ML IVPB SCH ×2 (10:18→22:18)
[2021-07-31] MEDS: SACUBITRIL/VALSARTAN 49 MG-51 MG TABLET PO SCH ×2 (10:37→22:18)
[2021-07-31] MEDS: metoPROLOL SUCCINATE 25 MG TAB.SR.24H (FP) PO SCH (10:38)
[2021-07-31] MEDS: FUROSEMIDE 40 MG/4 ML INJECTABLE VIAL IVPUSH SCH (10:38)
[2021-07-31] MEDS: NIFEdipine E.R. 90 MG TABLET PO SCH (10:38)
[2021-07-31] MEDS ORDERED: SODIUM CHLORIDE 250 ML IV ONE (14:45)
[2021-08-01] MEDS: ALBUTEROL SO4 2.5/IPRATROPIUM 0.5 INH SOL 3 ML VIAL.NEB. NEB SCH ×4 (07:25→20:35)
[2021-08-01 08:12] LABS: BASO % 0.8 % (0-2.0); HEMATOCRIT 29.5 % (32.4-45.2); HEMOGLOBIN 9.5 GM/dL (10.7-15.3); LYMPH % 21.1 % (8-40); MCH 28.9 pg (25.7-33.7); MCHC 32.2 g/dl (32.0-36.0); MONO % 15.8 % (3.8-10.2); NEUT % 57.3 % (42.8-82.8); PLATELET COUNT 112 10^3/uL (134-434); RBC 3.28 M/mm3 (3.60-5.2); RDW 16.7 % (11.6-15.6); WHITE BLOOD COUNT 4.7 K/mm3 (4.0-10.0)
[2021-08-01 08:16] LABS: CALCIUM 7.9 mg/dL (8.5-10.1)
[2021-08-01 08:18] LABS: BLOOD UREA NITROGEN 38.4 mg/dL (7-18)
[2021-08-01 08:20] LABS: CREATININE 1.6 mg/dL (0.55-1.3)
[2021-08-01] MEDS: SACUBITRIL/VALSARTAN 49 MG-51 MG TABLET PO SCH ×2 (09:20→21:01)
[2021-08-01] MEDS: metoPROLOL SUCCINATE 25 MG TAB.SR.24H (FP) PO SCH (09:20)
[2021-08-01] MEDS ORDERED: DEXTROSE 5%-WATER 100 ML IVPB ONE ×2 (11:05→21:02)
[2021-08-01] MEDS ORDERED: CEFEPIME HCL 2 GM VIAL (RESTRICTED TO ID) ONE ×2 (11:05→21:02)
[2021-08-01] MEDS: CEFEPIME 2 GM in DEXTROSE 5%-WATER 100 ML IVPB SCH ×2 (11:13→21:05)
[2021-08-01] MEDS: POTASSIUM CHLORIDE TABS 20 MEQ TABLET.ER (FP) PO SCH (11:14)
[2021-08-01] MEDS: FUROSEMIDE 40 MG/4 ML INJECTABLE VIAL IVPUSH SCH (11:14)
[2021-08-01] MEDS: APIXABAN 2.5 MG TABLET PO SCH ×2 (11:14→21:05)
[2021-08-01] MEDS: GABAPENTIN 300 MG CAPSULE PO SCH (11:14)
[2021-08-01] MEDS: MULTIVITAMINS (DAILY MVI) TABLET (FP) PO SCH (11:14)
[2021-08-02] MEDS: ALBUTEROL SO4 2.5/IPRATROPIUM 0.5 INH SOL 3 ML VIAL.NEB. NEB SCH ×4 (07:50→19:43)
[2021-08-02] MEDS ORDERED: CEFEPIME HCL 2 GM VIAL (RESTRICTED TO ID) ONE ×2 (09:54→21:20)
[2021-08-02] MEDS ORDERED: DEXTROSE 5%-WATER 100 ML IVPB ONE ×2 (09:54→21:20)
[2021-08-02] MEDS: POTASSIUM CHLORIDE TABS 20 MEQ TABLET.ER (FP) PO SCH (09:58)
[2021-08-02] MEDS: MULTIVITAMINS (DAILY MVI) TABLET (FP) PO SCH (09:58)
[2021-08-02] MEDS: APIXABAN 2.5 MG TABLET PO SCH ×2 (09:58→21:26)
[2021-08-02] MEDS: GABAPENTIN 300 MG CAPSULE PO SCH (09:58)
[2021-08-02] MEDS: CEFEPIME 2 GM in DEXTROSE 5%-WATER 100 ML IVPB SCH ×2 (09:59→21:26)
[2021-08-02] MEDS: FUROSEMIDE 40 MG/4 ML INJECTABLE VIAL IVPUSH SCH (10:00)
[2021-08-02] MEDS: metoPROLOL SUCCINATE 25 MG TAB.SR.24H (FP) PO SCH ×3 (11:15→16:59)
[2021-08-02] MEDS: SACUBITRIL/VALSARTAN 49 MG-51 MG TABLET PO SCH (11:15)
[2021-08-02 13:12] LABS: BASO % 1.1 % (0-2.0); EOS % 6.5 % (0-4.5); HEMATOCRIT 29.7 % (32.4-45.2); HEMOGLOBIN 9.7 GM/dL (10.7-15.3); LYMPH % 27.4 % (8-40); MCH 29.2 pg (25.7-33.7); MCHC 32.7 g/dl (32.0-36.0); MEAN CELL VOLUME 89.3 fl (80-96); MEAN PLT VOLUME 10.1 fl (7.5-11.1); MONO % 18.6 % (3.8-10.2); NEUT % 46.4 % (42.8-82.8); PLATELET COUNT 113 10^3/uL (134-434); RBC 3.32 M/mm3 (3.60-5.2); RDW 16.8 % (11.6-15.6)
[2021-08-02 13:38] LABS: CALCIUM 8.3 mg/dL (8.5-10.1)
[2021-08-02 13:39] LABS: BLOOD UREA NITROGEN 43.7 mg/dL (7-18)
[2021-08-02 13:42] LABS: CREATININE 1.7 mg/dL (0.55-1.3)
[2021-08-02 20:41] LABS: VENOUS O2 SATURATION 69.1 % (70-80); VENOUS PH 7.314 (7.310-7.410)
[2021-08-02 20:42] LABS: VENOUS PCO2 56.5 mmHg (38-52)
[2021-08-02] MEDS: SACUBITRIL/VALSARTAN 24 MG-26 MG TABLET PO SCH (21:27)
[2021-08-03] MEDS: ALBUTEROL SO4 2.5/IPRATROPIUM 0.5 INH SOL 3 ML VIAL.NEB. NEB SCH ×4 (07:51→20:40)
[2021-08-03 08:15] LABS: BASO % 1.7 % (0-2.0); EOS % 7.4 % (0-4.5); HEMATOCRIT 31.9 % (32.4-45.2); HEMOGLOBIN 10.1 GM/dL (10.7-15.3); LYMPH % 22.7 % (8-40); MCH 28.4 pg (25.7-33.7); MCHC 31.7 g/dl (32.0-36.0); MEAN CELL VOLUME 89.8 fl (80-96); MEAN PLT VOLUME 10.2 fl (7.5-11.1); MONO % 13.1 % (3.8-10.2); NEUT % 55.1 % (42.8-82.8); PLATELET COUNT 117 10^3/uL (134-434); RBC 3.56 M/mm3 (3.60-5.2); RDW 16.8 % (11.6-15.6); WHITE BLOOD COUNT 5.2 K/mm3 (4.0-10.0)
[2021-08-03 08:24] LABS: CALCIUM 8.6 mg/dL (8.5-10.1)
[2021-08-03 08:25] LABS: BLOOD UREA NITROGEN 41.4 mg/dL (7-18)
[2021-08-03 08:28] LABS: CREATININE 1.5 mg/dL (0.55-1.3)
[2021-08-03] MEDS ORDERED: DEXTROSE 5%-WATER 100 ML IVPB ONE ×2 (10:29→21:05)
[2021-08-03] MEDS ORDERED: CEFEPIME HCL 2 GM VIAL (RESTRICTED TO ID) ONE ×2 (10:29→21:05)
[2021-08-03] MEDS: SACUBITRIL/VALSARTAN 24 MG-26 MG TABLET PO SCH ×2 (10:36→21:49)
[2021-08-03] MEDS: POTASSIUM CHLORIDE TABS 20 MEQ TABLET.ER (FP) PO SCH (10:36)
[2021-08-03] MEDS: APIXABAN 2.5 MG TABLET PO SCH ×2 (10:36→21:49)
[2021-08-03] MEDS: MULTIVITAMINS (DAILY MVI) TABLET (FP) PO SCH (10:36)
[2021-08-03] MEDS: FUROSEMIDE 40 MG/4 ML INJECTABLE VIAL IVPUSH SCH (10:36)
[2021-08-03] MEDS: GABAPENTIN 300 MG CAPSULE PO SCH (10:36)
[2021-08-03] MEDS: CEFEPIME 2 GM in DEXTROSE 5%-WATER 100 ML IVPB SCH ×2 (10:36→21:49)
[2021-08-03 13:08] LABS: ARTERIAL BLD GAS O2 SATURATION 91.6 % (95-98); ARTERIAL BLOOD GAS BASE EXCESS 1.8 mmol/L (-2-2); ARTERIAL BLOOD GAS PO2 61.4 mmHg (80-100); ARTERIAL BLOOD GAS pH 7.404 (7.350-7.450)
[2021-08-03 13:09] LABS: ALLENS TEST POSITIVE
[2021-08-03] MEDS: metoPROLOL SUCCINATE 25 MG TAB.SR.24H (FP) PO SCH (17:20)
[2021-08-03] MEDS: MELATONIN 5 MG TABLETS PO PRN (21:49)
[2021-08-04] MEDS: ALBUTEROL SO4 2.5/IPRATROPIUM 0.5 INH SOL 3 ML VIAL.NEB. NEB SCH ×4 (07:15→20:00)
[2021-08-04 07:42] LABS: BASO % 0.7 % (0-2.0); EOS % 6.5 % (0-4.5); HEMATOCRIT 32.6 % (32.4-45.2); HEMOGLOBIN 10.6 GM/dL (10.7-15.3); LYMPH % 21.6 % (8-40); MCHC 32.6 g/dl (32.0-36.0); MEAN CELL VOLUME 88.8 fl (80-96); MEAN PLT VOLUME 10.1 fl (7.5-11.1); MONO % 14.7 % (3.8-10.2); NEUT % 56.5 % (42.8-82.8); PLATELET COUNT 126 10^3/uL (134-434); RBC 3.67 M/mm3 (3.60-5.2); RDW 16.6 % (11.6-15.6)
[2021-08-04 07:44] LABS: CALCIUM 8.8 mg/dL (8.5-10.1)
[2021-08-04 07:45] LABS: BLOOD UREA NITROGEN 42.9 mg/dL (7-18)
[2021-08-04 07:48] LABS: CREATININE 1.4 mg/dL (0.55-1.3)
[2021-08-04] MEDS ORDERED: CEFEPIME HCL 2 GM VIAL (RESTRICTED TO ID) ONE ×2 (09:10→20:50)
[2021-08-04] MEDS ORDERED: DEXTROSE 5%-WATER 100 ML IVPB ONE ×2 (09:11→20:50)
[2021-08-04] MEDS: GABAPENTIN 300 MG CAPSULE PO SCH (10:34)
[2021-08-04] MEDS: SACUBITRIL/VALSARTAN 24 MG-26 MG TABLET PO SCH ×2 (10:34→21:22)
[2021-08-04] MEDS: APIXABAN 2.5 MG TABLET PO SCH ×2 (10:34→21:22)
[2021-08-04] MEDS: POTASSIUM CHLORIDE TABS 20 MEQ TABLET.ER (FP) PO SCH (10:34)
[2021-08-04] MEDS: MULTIVITAMINS (DAILY MVI) TABLET (FP) PO SCH (10:35)
[2021-08-04] MEDS: CEFEPIME 2 GM in DEXTROSE 5%-WATER 100 ML IVPB SCH ×2 (10:35→21:23)
[2021-08-04] MEDS: FUROSEMIDE 40 MG/4 ML INJECTABLE VIAL IVPUSH SCH (10:35)
[2021-08-04] MEDS: metoPROLOL SUCCINATE 25 MG TAB.SR.24H (FP) PO SCH (18:31)
[2021-08-04] MEDS: QUEtiapine FUMARATE 25 MG TABLET PO PRN (21:22)
[2021-08-05] MEDS: ALBUTEROL SO4 2.5/IPRATROPIUM 0.5 INH SOL 3 ML VIAL.NEB. NEB SCH ×4 (07:25→20:06)
[2021-08-05 08:00] LABS: BASO % 0.7 % (0-2.0); EOS % 7.6 % (0-4.5); HEMATOCRIT 31.2 % (32.4-45.2); LYMPH % 19.2 % (8-40); MCH 28.6 pg (25.7-33.7); MCHC 32.1 g/dl (32.0-36.0); MEAN CELL VOLUME 89.1 fl (80-96); MEAN PLT VOLUME 10.4 fl (7.5-11.1); MONO % 15.1 % (3.8-10.2); NEUT % 57.4 % (42.8-82.8); PLATELET COUNT 129 10^3/uL (134-434); RDW 16.2 % (11.6-15.6)
[2021-08-05 08:22] LABS: BLOOD UREA NITROGEN 37.8 mg/dL (7-18)
[2021-08-05 08:25] LABS: CREATININE 1.2 mg/dL (0.55-1.3)
[2021-08-05 08:29] LABS: N-TERMINAL BNP 6567.7 pg/ml (5-450)
[2021-08-05] MEDS ORDERED: CEFEPIME HCL 2 GM VIAL (RESTRICTED TO ID) ONE ×2 (09:26→21:16)
[2021-08-05] MEDS ORDERED: DEXTROSE 5%-WATER 100 ML IVPB ONE ×2 (09:26→21:16)
[2021-08-05] MEDS: CEFEPIME 2 GM in DEXTROSE 5%-WATER 100 ML IVPB SCH ×2 (09:32→21:21)
[2021-08-05] MEDS: APIXABAN 2.5 MG TABLET PO SCH ×2 (09:35→21:21)
[2021-08-05] MEDS: SACUBITRIL/VALSARTAN 24 MG-26 MG TABLET PO SCH ×2 (09:35→21:21)
[2021-08-05] MEDS: MULTIVITAMINS (DAILY MVI) TABLET (FP) PO SCH (09:36)
[2021-08-05] MEDS: GABAPENTIN 300 MG CAPSULE PO SCH (09:36)
[2021-08-05] MEDS: POTASSIUM CHLORIDE TABS 20 MEQ TABLET.ER (FP) PO SCH (09:36)
[2021-08-05] MEDS: FUROSEMIDE 40 MG/4 ML INJECTABLE VIAL IVPUSH SCH (09:40)
[2021-08-05] MEDS: metoPROLOL SUCCINATE 25 MG TAB.SR.24H (FP) PO SCH (16:50)
[2021-08-06] MEDS: ALBUTEROL SO4 2.5/IPRATROPIUM 0.5 INH SOL 3 ML VIAL.NEB. NEB SCH ×4 (07:45→20:10)
[2021-08-06] MEDS ORDERED: CEFEPIME HCL 2 GM VIAL (RESTRICTED TO ID) ONE (10:32)
[2021-08-06] MEDS ORDERED: DEXTROSE 5%-WATER 100 ML IVPB ONE ×2 (10:32→17:50)
[2021-08-06] MEDS: FUROSEMIDE 40 MG/4 ML INJECTABLE VIAL IVPUSH SCH (10:43)
[2021-08-06] MEDS: POTASSIUM CHLORIDE TABS 20 MEQ TABLET.ER (FP) PO SCH (10:43)
[2021-08-06] MEDS: MULTIVITAMINS (DAILY MVI) TABLET (FP) PO SCH (10:43)
[2021-08-06] MEDS: SACUBITRIL/VALSARTAN 24 MG-26 MG TABLET PO SCH ×2 (10:43→21:23)
[2021-08-06] MEDS: APIXABAN 2.5 MG TABLET PO SCH ×2 (10:43→21:23)
[2021-08-06] MEDS: CEFEPIME 2 GM in DEXTROSE 5%-WATER 100 ML IVPB SCH (10:43)
[2021-08-06] MEDS: GABAPENTIN 300 MG CAPSULE PO SCH (10:44)
[2021-08-06 11:24] VITALS: BMI 36.3
[2021-08-06] MEDS ORDERED: MEROPENEM 1 GM VIAL (RESTRICTED TO ID) IVPB ONE (17:49)
[2021-08-06] MEDS: MEROPENEM 1 GM in DEXTROSE 5%-WATER 100 ML IVPB SCH (17:51)
[2021-08-06] MEDS: metoPROLOL SUCCINATE 25 MG TAB.SR.24H (FP) PO SCH (18:06)
[2021-08-06] MEDS: QUEtiapine FUMARATE 25 MG TABLET PO PRN (22:22)
[2021-08-06] MEDS: MELATONIN 5 MG TABLETS PO PRN (22:30)
[2021-08-07] MEDS ORDERED: MEROPENEM 1 GM VIAL (RESTRICTED TO ID) IVPB ONE ×2 (02:02→16:00)
[2021-08-07] MEDS ORDERED: DEXTROSE 5%-WATER 100 ML IVPB ONE ×2 (02:02→16:00)
[2021-08-07] MEDS: MEROPENEM 1 GM in DEXTROSE 5%-WATER 100 ML IVPB SCH ×2 (02:35→16:19)
[2021-08-07] MEDS: ALBUTEROL SO4 2.5/IPRATROPIUM 0.5 INH SOL 3 ML VIAL.NEB. NEB SCH ×4 (07:45→20:15)
[2021-08-07 08:05] LABS: BASO % 0.6 % (0-2.0); EOS % 5.1 % (0-4.5); HEMATOCRIT 33.6 % (32.4-45.2); HEMOGLOBIN 10.7 GM/dL (10.7-15.3); MCH 28.4 pg (25.7-33.7); MCHC 31.9 g/dl (32.0-36.0); MEAN CELL VOLUME 89.2 fl (80-96); MEAN PLT VOLUME 10.5 fl (7.5-11.1); MONO % 16.7 % (3.8-10.2); NEUT % 57.6 % (42.8-82.8); PLATELET COUNT 126 10^3/uL (134-434); RBC 3.76 M/mm3 (3.60-5.2); RDW 16.8 % (11.6-15.6); WHITE BLOOD COUNT 6.9 K/mm3 (4.0-10.0)
[2021-08-07 08:28] LABS: BLOOD UREA NITROGEN 30.4 mg/dL (7-18)
[2021-08-07 08:31] LABS: CREATININE 1.2 mg/dL (0.55-1.3)
[2021-08-07] MEDS: POTASSIUM CHLORIDE TABS 20 MEQ TABLET.ER (FP) PO SCH (10:25)
[2021-08-07] MEDS: GABAPENTIN 300 MG CAPSULE PO SCH (10:25)
[2021-08-07] MEDS: SACUBITRIL/VALSARTAN 24 MG-26 MG TABLET PO SCH ×2 (10:25→21:49)
[2021-08-07] MEDS: APIXABAN 2.5 MG TABLET PO SCH ×2 (10:25→21:49)
[2021-08-07] MEDS: FUROSEMIDE 40 MG/4 ML INJECTABLE VIAL IVPUSH SCH (10:25)
[2021-08-07] MEDS: MULTIVITAMINS (DAILY MVI) TABLET (FP) PO SCH (10:26)
[2021-08-07] MEDS: ALBUTEROL SO4 HFA INHALER IH PRN (10:27)
[2021-08-07] MEDS: metoPROLOL SUCCINATE 25 MG TAB.SR.24H (FP) PO SCH (20:37)
[2021-08-07] MEDS: QUEtiapine FUMARATE 25 MG TABLET PO PRN (21:49)
[2021-08-08] MEDS ORDERED: MEROPENEM 1 GM VIAL (RESTRICTED TO ID) IVPB ONE ×2 (02:28→15:32)
[2021-08-08] MEDS ORDERED: DEXTROSE 5%-WATER 100 ML IVPB ONE ×2 (02:28→15:33)
[2021-08-08] MEDS: MEROPENEM 1 GM in DEXTROSE 5%-WATER 100 ML IVPB SCH ×2 (02:45→15:36)
[2021-08-08] MEDS: ALBUTEROL SO4 2.5/IPRATROPIUM 0.5 INH SOL 3 ML VIAL.NEB. NEB SCH ×4 (07:30→20:18)
[2021-08-08] MEDS: SACUBITRIL/VALSARTAN 24 MG-26 MG TABLET PO SCH ×2 (09:15→21:54)
[2021-08-08] MEDS: POTASSIUM CHLORIDE TABS 20 MEQ TABLET.ER (FP) PO SCH (09:15)
[2021-08-08] MEDS: APIXABAN 2.5 MG TABLET PO SCH ×2 (09:15→21:54)
[2021-08-08] MEDS: MULTIVITAMINS (DAILY MVI) TABLET (FP) PO SCH (09:15)
[2021-08-08] MEDS: FUROSEMIDE 40 MG/4 ML INJECTABLE VIAL IVPUSH SCH (09:15)
[2021-08-08] MEDS: GABAPENTIN 300 MG CAPSULE PO SCH (09:15)
[2021-08-08] MEDS: metoPROLOL SUCCINATE 25 MG TAB.SR.24H (FP) PO SCH (17:38)
[2021-08-08] MEDS: QUEtiapine FUMARATE 25 MG TABLET PO PRN (21:54)
[2021-08-09] MEDS: ALBUTEROL SO4 2.5/IPRATROPIUM 0.5 INH SOL 3 ML VIAL.NEB. NEB SCH ×4 (07:40→20:10)
[2021-08-09] MEDS: SACUBITRIL/VALSARTAN 24 MG-26 MG TABLET PO SCH ×2 (10:19→21:34)
[2021-08-09] MEDS: APIXABAN 2.5 MG TABLET PO SCH ×2 (10:19→21:34)
[2021-08-09] MEDS: FUROSEMIDE 40 MG/4 ML INJECTABLE VIAL IVPUSH SCH (10:19)
[2021-08-09] MEDS: GABAPENTIN 300 MG CAPSULE PO SCH (10:19)
[2021-08-09] MEDS: MULTIVITAMINS (DAILY MVI) TABLET (FP) PO SCH (10:19)
[2021-08-09] MEDS: POTASSIUM CHLORIDE TABS 20 MEQ TABLET.ER (FP) PO SCH (10:21)
[2021-08-09 13:39] LABS: BASO % 0.6 % (0-2.0); EOS % 5.8 % (0-4.5); HEMATOCRIT 30.5 % (32.4-45.2); HEMOGLOBIN 9.8 GM/dL (10.7-15.3); LYMPH % 22.5 % (8-40); MCH 28.5 pg (25.7-33.7); MCHC 32.1 g/dl (32.0-36.0); MEAN CELL VOLUME 88.9 fl (80-96); MEAN PLT VOLUME 10.5 fl (7.5-11.1); MONO % 11.7 % (3.8-10.2); NEUT % 59.4 % (42.8-82.8); PLATELET COUNT 138 10^3/uL (134-434); RBC 3.43 M/mm3 (3.60-5.2); RDW 16.2 % (11.6-15.6); WHITE BLOOD COUNT 6.4 K/mm3 (4.0-10.0)
[2021-08-09 14:05] LABS: CALCIUM 8.5 mg/dL (8.5-10.1)
[2021-08-09 14:11] LABS: CREATININE 1.3 mg/dL (0.55-1.3)
[2021-08-09 14:14] LABS: N-TERMINAL BNP 4642.6 pg/ml (5-450)
[2021-08-10] MEDS: ALBUTEROL SO4 2.5/IPRATROPIUM 0.5 INH SOL 3 ML VIAL.NEB. NEB SCH ×4 (08:35→20:36)
[2021-08-10] MEDS ORDERED: FUROSEMIDE 20 MG TABLET (FP) PO ONE ×2 (08:49→09:30)
[2021-08-10] MEDS: MULTIVITAMINS (DAILY MVI) TABLET (FP) PO SCH (09:25)
[2021-08-10] MEDS: APIXABAN 2.5 MG TABLET PO SCH ×2 (09:25→21:23)
[2021-08-10] MEDS: POTASSIUM CHLORIDE TABS 20 MEQ TABLET.ER (FP) PO SCH (09:25)
[2021-08-10] MEDS: GABAPENTIN 300 MG CAPSULE PO SCH (09:25)
[2021-08-10] MEDS: SACUBITRIL/VALSARTAN 24 MG-26 MG TABLET PO SCH ×2 (09:25→21:23)
[2021-08-11] MEDS: ALBUTEROL SO4 2.5/IPRATROPIUM 0.5 INH SOL 3 ML VIAL.NEB. NEB SCH ×4 (07:57→19:56)
[2021-08-11 08:25] LABS: CALCIUM 8.6 mg/dL (8.5-10.1)
[2021-08-11 08:26] LABS: BLOOD UREA NITROGEN 29.7 mg/dL (7-18)
[2021-08-11 08:29] LABS: CREATININE 1.3 mg/dL (0.55-1.3)
[2021-08-11] MEDS: APIXABAN 2.5 MG TABLET PO SCH ×2 (09:34→22:06)
[2021-08-11] MEDS: SACUBITRIL/VALSARTAN 24 MG-26 MG TABLET PO SCH ×2 (09:34→22:06)
[2021-08-11] MEDS: FUROSEMIDE 40 MG TABLET (FP) PO SCH (09:34)
[2021-08-11] MEDS: GABAPENTIN 300 MG CAPSULE PO SCH (09:34)
[2021-08-11] MEDS: POTASSIUM CHLORIDE TABS 20 MEQ TABLET.ER (FP) PO SCH (09:34)
[2021-08-11] MEDS: MULTIVITAMINS (DAILY MVI) TABLET (FP) PO SCH (09:35)
[2021-08-11 12:25] LABS: BASO % 0.6 % (0-2.0); EOS % 5.8 % (0-4.5); HEMATOCRIT 35.1 % (32.4-45.2); HEMOGLOBIN 11.2 GM/dL (10.7-15.3); MCH 28.3 pg (25.7-33.7); MEAN CELL VOLUME 88.4 fl (80-96); MEAN PLT VOLUME 10.2 fl (7.5-11.1); MONO % 9.6 % (3.8-10.2); PLATELET COUNT 161 10^3/uL (134-434); RBC 3.97 M/mm3 (3.60-5.2); RDW 16.1 % (11.6-15.6); WHITE BLOOD COUNT 6.1 K/mm3 (4.0-10.0)
[2021-08-11] MEDS: QUEtiapine FUMARATE 25 MG TABLET PO PRN (22:06)
[2021-08-12 07:38] LABS: BASO % 0.6 % (0-2.0); EOS % 5.2 % (0-4.5); HEMATOCRIT 30.7 % (32.4-45.2); LYMPH % 22.7 % (8-40); MCH 28.7 pg (25.7-33.7); MCHC 32.7 g/dl (32.0-36.0); MEAN CELL VOLUME 87.7 fl (80-96); MEAN PLT VOLUME 10.3 fl (7.5-11.1); MONO % 9.5 % (3.8-10.2); PLATELET COUNT 146 10^3/uL (134-434); RDW 15.8 % (11.6-15.6)
[2021-08-12] MEDS: ALBUTEROL SO4 2.5/IPRATROPIUM 0.5 INH SOL 3 ML VIAL.NEB. NEB SCH ×4 (07:40→20:03)
[2021-08-12 08:10] LABS: CALCIUM 8.6 mg/dL (8.5-10.1)
[2021-08-12 08:11] LABS: BLOOD UREA NITROGEN 29.2 mg/dL (7-18)
[2021-08-12 08:14] LABS: CREATININE 1.2 mg/dL (0.55-1.3)
[2021-08-12] MEDS: GABAPENTIN 300 MG CAPSULE PO SCH (09:21)
[2021-08-12] MEDS: MULTIVITAMINS (DAILY MVI) TABLET (FP) PO SCH (09:22)
[2021-08-12] MEDS: APIXABAN 2.5 MG TABLET PO SCH ×2 (09:22→22:28)
[2021-08-12] MEDS: POTASSIUM CHLORIDE TABS 20 MEQ TABLET.ER (FP) PO SCH (09:22)
[2021-08-12] MEDS: SACUBITRIL/VALSARTAN 24 MG-26 MG TABLET PO SCH ×2 (09:22→22:28)
[2021-08-12] MEDS: FUROSEMIDE 40 MG TABLET (FP) PO SCH (09:22)
[2021-08-12] MEDS: QUEtiapine FUMARATE 25 MG TABLET PO PRN (22:28)
[2021-08-13] MEDS: ALBUTEROL SO4 2.5/IPRATROPIUM 0.5 INH SOL 3 ML VIAL.NEB. NEB SCH ×2 (07:29→11:52)
[2021-08-13 07:58] VITALS: PULSE 73
[2021-08-13] MEDS: POTASSIUM CHLORIDE TABS 20 MEQ TABLET.ER (FP) PO SCH (10:32)
[2021-08-13] MEDS: SACUBITRIL/VALSARTAN 24 MG-26 MG TABLET PO SCH (10:32)
[2021-08-13] MEDS: MULTIVITAMINS (DAILY MVI) TABLET (FP) PO SCH (10:33)
[2021-08-13] MEDS: FUROSEMIDE 40 MG TABLET (FP) PO SCH (10:33)
[2021-08-13] MEDS: APIXABAN 2.5 MG TABLET PO SCH (10:34)
[2021-08-13] MEDS: GABAPENTIN 300 MG CAPSULE PO SCH (10:35)
[2021-08-13 12:21] VITALS: BP 115/60; TEMP 98.8
== END 2021-08-13 14:44 | disposition home health service (06) | DRG 291 ==
LOC: JER 16:24 → JERBED 19:46 → J4S 07-30 15:12
PROVIDERS: ADMIT Internal Medicine; ATTEND Internal Medicine
DX: I13.0 Hypertensive heart and chronic kidney disease with heart failure and stage 1 through stage 4 chronic kidney disease, or unspecified chronic kidney disease (principal); J18.9 Pneumonia, unspecified organism; I50.33 Acute on chronic diastolic (congestive) heart failure; I24.8 Other forms of acute ischemic heart disease; I48.21 Permanent atrial fibrillation; J96.10 Chronic respiratory failure, unspecified whether with hypoxia or hypercapnia; N17.9 Acute kidney failure, unspecified; J98.11 Atelectasis; I10 Essential (primary) hypertension; E78.5 Hyperlipidemia, unspecified; Z79.01 Long term (current) use of anticoagulants; J44.9 Chronic obstructive pulmonary disease, unspecified; Z99.81 Dependence on supplemental oxygen; I25.10 Atherosclerotic heart disease of native coronary artery without angina pectoris; E78.00 Pure hypercholesterolemia, unspecified; N18.30 Chronic kidney disease, stage 3 unspecified; E66.01 Morbid (severe) obesity due to excess calories; Z68.35 Body mass index [BMI] 35.0-35.9, adult; R33.8 Other retention of urine
CPT/HCPCS: 36415; 36600; 70450-TC; 71045-TC-FY; 76604; 80048; 80053; 81003; 82553; 82803; 82962; 83036; 83605; 83735; 83880; 84443; 84484; 85025; 85610; 85730; 86850; 86900; 86901; 87040; 87086; 87899; 93005; 93010; 93306-TC; 93308; 93970; 93970-TC; 94640; 97161-GP; 99285-25; C9803-CS; U0003; U0005

== ENCOUNTER 2021-08-26 14:37 | Inpatient (IN) | payer OTHER ==
[2021-08-26 17:46] LABS: BASO % 1.4 % (0-2.0); EOS % 5.1 % (0-4.5); HEMATOCRIT 34.6 % (32.4-45.2); HEMOGLOBIN 10.8 GM/dL (10.7-15.3); MCH 27.7 pg (25.7-33.7); MCHC 31.2 g/dl (32.0-36.0); MEAN CELL VOLUME 88.7 fl (80-96); MEAN PLT VOLUME 10.9 fl (7.5-11.1); MONO % 12.9 % (3.8-10.2); NEUT % 49.6 % (42.8-82.8); PLATELET COUNT 141 10^3/uL (134-434); RDW 16.8 % (11.6-15.6); WHITE BLOOD COUNT 4.1 K/mm3 (4.0-10.0)
[2021-08-26 18:04] LABS: CALCIUM 8.9 mg/dL (8.5-10.1)
[2021-08-26 18:05] LABS: ALBUMIN 3.2 g/dl (3.4-5.0); BLOOD UREA NITROGEN 18.8 mg/dL (7-18); MAGNESIUM 1.8 mg/dL (1.8-2.4)
[2021-08-26 18:08] LABS: CREATININE 1.1 mg/dL (0.55-1.3)
[2021-08-26 18:09] LABS: TOT PROT 7.2 g/dl (6.4-8.2)
[2021-08-26 18:13] LABS: N-TERMINAL BNP 4990.1 pg/ml (5-450)
[2021-08-26 18:29] LABS: URINE APPEARANCE CLEAR; URINE BILIRUBIN NEGATIVE (NEGATIVE); URINE COLOR YELLOW; URINE GLUCOSE (UA) NEGATIVE (NEGATIVE); URINE KETONE NEGATIVE (NEGATIVE); URINE LEUK ESTERASE NEGATIVE (NEGATIVE); URINE NITRITE NEGATIVE (NEGATIVE); URINE PROTEIN NEGATIVE (NEGATIVE)
[2021-08-26] MEDS ORDERED: ACETAMINOPHEN 325 MG TABLET (FP) PO PRN (21:12)
[2021-08-26] MEDS ORDERED: ALBUTEROL SO4 HFA INHALER IH PRN (21:12)
[2021-08-26] MEDS ORDERED: SACUBITRIL/VALSARTAN 49 MG-51 MG TABLET PO SCH (22:00)
[2021-08-27] MEDS: APIXABAN 2.5 MG TABLET PO SCH ×4 (01:22→21:59)
[2021-08-27] MEDS: MELATONIN 5 MG TABLETS PO PRN ×2 (01:22→21:58)
[2021-08-27] MEDS: QUEtiapine FUMARATE 25 MG TABLET PO PRN ×2 (01:22→22:43)
[2021-08-27] MEDS: SACUBITRIL/VALSARTAN 24 MG-26 MG TABLET PO SCH ×3 (01:48→21:59)
[2021-08-27] MEDS: ALBUTEROL SO4 2.5/IPRATROPIUM 0.5 INH SOL 3 ML VIAL.NEB. NEB SCH ×4 (08:59→20:49)
[2021-08-27] MEDS ORDERED: NIFEdipine E.R. 90 MG TABLET PO SCH (10:00)
[2021-08-27] MEDS ORDERED: FUROSEMIDE 40 MG TABLET (FP) PO SCH (10:00)
[2021-08-27] MEDS: MULTIVITAMINS (DAILY MVI) TABLET (FP) PO SCH (10:37)
[2021-08-27] MEDS: POTASSIUM CHLORIDE TABS 20 MEQ TABLET.ER (FP) PO SCH (10:37)
[2021-08-27] MEDS: FUROSEMIDE 40 MG TABLET (FP) PO SCH (10:37)
[2021-08-28] MEDS: ALBUTEROL SO4 2.5/IPRATROPIUM 0.5 INH SOL 3 ML VIAL.NEB. NEB SCH ×4 (08:25→19:15)
[2021-08-28] MEDS: MULTIVITAMINS (DAILY MVI) TABLET (FP) PO SCH (09:26)
[2021-08-28] MEDS: SACUBITRIL/VALSARTAN 24 MG-26 MG TABLET PO SCH ×2 (09:26→21:52)
[2021-08-28] MEDS: POTASSIUM CHLORIDE TABS 20 MEQ TABLET.ER (FP) PO SCH (09:26)
[2021-08-28] MEDS: APIXABAN 2.5 MG TABLET PO SCH ×2 (09:26→21:53)
[2021-08-28] MEDS: FUROSEMIDE 40 MG TABLET (FP) PO SCH (09:26)
[2021-08-28 09:39] LABS: BASO % 1.4 % (0-2.0); EOS % 6.7 % (0-4.5); HEMATOCRIT 33.1 % (32.4-45.2); HEMOGLOBIN 10.5 GM/dL (10.7-15.3); LYMPH % 34.2 % (8-40); MCH 27.6 pg (25.7-33.7); MCHC 31.6 g/dl (32.0-36.0); MEAN CELL VOLUME 87.3 fl (80-96); MEAN PLT VOLUME 10.8 fl (7.5-11.1); MONO % 9.9 % (3.8-10.2); NEUT % 47.8 % (42.8-82.8); PLATELET COUNT 143 10^3/uL (134-434); RDW 16.6 % (11.6-15.6); WHITE BLOOD COUNT 4.3 K/mm3 (4.0-10.0)
[2021-08-28 10:15] LABS: BLOOD UREA NITROGEN 13.8 mg/dL (7-18)
[2021-08-28 10:19] LABS: CALCIUM 8.7 mg/dL (8.5-10.1); CREATININE 0.8 mg/dL (0.55-1.3)
[2021-08-28] MEDS: QUEtiapine FUMARATE 25 MG TABLET PO SCH (21:52)
[2021-08-29] MEDS: ALBUTEROL SO4 2.5/IPRATROPIUM 0.5 INH SOL 3 ML VIAL.NEB. NEB SCH ×4 (09:46→20:35)
[2021-08-29] MEDS: FUROSEMIDE 40 MG TABLET (FP) PO SCH (09:48)
[2021-08-29] MEDS: POTASSIUM CHLORIDE TABS 20 MEQ TABLET.ER (FP) PO SCH (09:48)
[2021-08-29] MEDS: APIXABAN 2.5 MG TABLET PO SCH ×2 (09:48→21:18)
[2021-08-29] MEDS: MULTIVITAMINS (DAILY MVI) TABLET (FP) PO SCH (09:48)
[2021-08-29] MEDS: QUEtiapine FUMARATE 25 MG TABLET PO SCH ×2 (09:48→21:18)
[2021-08-29] MEDS: SACUBITRIL/VALSARTAN 24 MG-26 MG TABLET PO SCH ×2 (09:53→22:00)
[2021-08-29] MEDS ORDERED: DONEPEZIL HCL 5 MG TABLET (FP) PO SCH (18:00)
[2021-08-29 23:56] VITALS: BMI 33.9
[2021-08-30] MEDS: ALBUTEROL SO4 2.5/IPRATROPIUM 0.5 INH SOL 3 ML VIAL.NEB. NEB SCH ×2 (07:30→11:38)
[2021-08-30] MEDS: POTASSIUM CHLORIDE TABS 20 MEQ TABLET.ER (FP) PO SCH (10:07)
[2021-08-30] MEDS: QUEtiapine FUMARATE 25 MG TABLET PO SCH (10:08)
[2021-08-30] MEDS: FUROSEMIDE 40 MG TABLET (FP) PO SCH (10:08)
[2021-08-30] MEDS: APIXABAN 2.5 MG TABLET PO SCH (10:08)
[2021-08-30] MEDS: SACUBITRIL/VALSARTAN 24 MG-26 MG TABLET PO SCH (10:08)
[2021-08-30] MEDS: MULTIVITAMINS (DAILY MVI) TABLET (FP) PO SCH (10:09)
[2021-08-30 10:16] LABS: BASO % 1.2 % (0-2.0); EOS % 4.6 % (0-4.5); HEMATOCRIT 34.2 % (32.4-45.2); HEMOGLOBIN 10.7 GM/dL (10.7-15.3); LYMPH % 35.7 % (8-40); MCH 27.3 pg (25.7-33.7); MCHC 31.2 g/dl (32.0-36.0); MEAN CELL VOLUME 87.4 fl (80-96); MEAN PLT VOLUME 10.8 fl (7.5-11.1); MONO % 11.9 % (3.8-10.2); NEUT % 46.6 % (42.8-82.8); PLATELET COUNT 135 10^3/uL (134-434); RBC 3.91 M/mm3 (3.60-5.2); RDW 16.7 % (11.6-15.6); WHITE BLOOD COUNT 3.7 K/mm3 (4.0-10.0)
[2021-08-30 10:43] LABS: BLOOD UREA NITROGEN 9.3 mg/dL (7-18)
[2021-08-30 10:46] LABS: CALCIUM 8.8 mg/dL (8.5-10.1)
[2021-08-30 10:47] LABS: CREATININE 0.8 mg/dL (0.55-1.3)
[2021-08-30 14:40] VITALS: BP 141/74; PULSE 84; TEMP 97.7
== END 2021-08-30 16:00 | disposition home health service (06) | DRG 884 ==
LOC: JER 14:37 → JERBED 20:00 → J6S 23:11
PROVIDERS: ADMIT Internal Medicine; ATTEND Internal Medicine
DX: F03.90 Unspecified dementia, unspecified severity, without behavioral disturbance, psychotic disturbance, mood disturbance, and anxiety (principal); I50.32 Chronic diastolic (congestive) heart failure; I13.0 Hypertensive heart and chronic kidney disease with heart failure and stage 1 through stage 4 chronic kidney disease, or unspecified chronic kidney disease; R62.7 Adult failure to thrive; J44.9 Chronic obstructive pulmonary disease, unspecified; N18.30 Chronic kidney disease, stage 3 unspecified; E78.5 Hyperlipidemia, unspecified; E66.9 Obesity, unspecified; Z68.31 Body mass index [BMI] 31.0-31.9, adult
CPT/HCPCS: 36415; 70450-TC; 71045-TC-FY; 80048; 80053; 81003; 82607; 82746; 83735; 83880; 84443; 84484; 85025; 87086; 93005; 93010; 94640; 99285-25; C9803-CS; U0003; U0005

== ENCOUNTER 2021-10-15 21:46 | Inpatient (IN) | payer OTHER ==
[2021-10-15] MEDS ORDERED: ACETAMINOPHEN 1000 MG/100 ML BAG IVPB ONE (23:22)
[2021-10-15] MEDS ORDERED: ACETAMINOPHEN INJECTION 100 ML IVPB ONE (23:40)
[2021-10-15 23:45] LABS: BASO % 0.8 % (0-2.0); EOS % 4.8 % (0-4.5); HEMATOCRIT 42.8 % (32.4-45.2); HEMOGLOBIN 13.7 GM/dL (10.7-15.3); MCH 26.3 pg (25.7-33.7); MEAN CELL VOLUME 82.2 fl (80-96); MEAN PLT VOLUME 10.1 fl (7.5-11.1); MONO % 7.6 % (3.8-10.2); NEUT % 49.8 % (42.8-82.8); PLATELET COUNT 136 10^3/uL (134-434); RDW 19.4 % (11.6-15.6); WHITE BLOOD COUNT 4.8 K/mm3 (4.0-10.0)
[2021-10-16 00:11] LABS: ALBUMIN 3.3 g/dl (3.4-5.0); CALCIUM 9.3 mg/dL (8.5-10.1); MAGNESIUM 2.5 mg/dL (1.8-2.4)
[2021-10-16 00:15] LABS: BILIRUBIN,TOTAL 0.8 mg/dL (0.2-1); CREATININE 1.7 mg/dL (0.55-1.3); TOT PROT 7.8 g/dl (6.4-8.2)
[2021-10-16] MEDS ORDERED: QUEtiapine FUMARATE 25 MG TABLET PO ONE (00:53)
[2021-10-16] MEDS ORDERED: DONEPEZIL HCL 5 MG TABLET (FP) PO ONE (01:00)
[2021-10-16] MEDS ORDERED: QUEtiapine FUMARATE 25 MG TABLET ONE (01:19)
[2021-10-16] MEDS ORDERED: DONEPEZIL HCL 5 MG TABLET (FP) ONE (01:19)
[2021-10-16] MEDS ORDERED: POLYETHYLENE GLYCOL (HEALTHYLAX) 3350 17 GM PACKET PO PRN (03:54)
[2021-10-16] MEDS ORDERED: ALBUTEROL SO4 HFA INHALER IH PRN (05:52)
[2021-10-16] MEDS ORDERED: QUEtiapine FUMARATE 25 MG TABLET PO PRN (05:52)
[2021-10-16 05:58] LABS: EPI CELLS 8 /uL (0-25.1); HYALINE CASTS 1 /uL (0-3.1); URINE APPEARANCE CLEAR; URINE BACTERIA 8189 /uL (0-1359); URINE BILIRUBIN NEGATIVE (NEGATIVE); URINE COLOR YELLOW; URINE GLUCOSE (UA) NEGATIVE (NEGATIVE); URINE KETONE NEGATIVE (NEGATIVE); URINE LEUK ESTERASE NEGATIVE (NEGATIVE); URINE NITRITE POSITIVE (NEGATIVE); URINE PROTEIN NEGATIVE (NEGATIVE); URINE RBC 5 /uL (0-23.9); URINE UROBILINOGEN 0.2 mg/dL (0.2-1.0); URINE WBC 8 /uL (0-25.8)
[2021-10-16] MEDS: APIXABAN 2.5 MG TABLET PO SCH ×2 (10:16→21:17)
[2021-10-16] MEDS: metoPROLOL SUCCINATE 25 MG TAB.SR.24H (FP) PO SCH (10:16)
[2021-10-16] MEDS: MULTIVITAMINS (DAILY MVI) TABLET (FP) PO SCH (10:16)
[2021-10-16] MEDS: QUEtiapine FUMARATE 25 MG TABLET PO SCH ×2 (10:17→21:17)
[2021-10-16] MEDS ORDERED: SODIUM CHLORIDE 1,000 ML IV SCH (11:15)
[2021-10-16] MEDS: SACUBITRIL/VALSARTAN 24 MG-26 MG TABLET PO SCH (12:59)
[2021-10-16] MEDS: DONEPEZIL HCL 5 MG TABLET (FP) PO SCH (21:17)
[2021-10-17] MEDS: QUEtiapine FUMARATE 25 MG TABLET PO SCH ×2 (09:40→21:48)
[2021-10-17] MEDS: MULTIVITAMINS (DAILY MVI) TABLET (FP) PO SCH (09:40)
[2021-10-17] MEDS: metoPROLOL SUCCINATE 25 MG TAB.SR.24H (FP) PO SCH (09:40)
[2021-10-17] MEDS: APIXABAN 2.5 MG TABLET PO SCH ×2 (09:40→21:49)
[2021-10-17 11:07] LABS: BASO % 0.3 % (0-2.0); EOS % 4.7 % (0-4.5); HEMATOCRIT 39.3 % (32.4-45.2); HEMOGLOBIN 12.7 GM/dL (10.7-15.3); LYMPH % 31.3 % (8-40); MCH 26.6 pg (25.7-33.7); MCHC 32.3 g/dl (32.0-36.0); MEAN CELL VOLUME 82.5 fl (80-96); MEAN PLT VOLUME 10.3 fl (7.5-11.1); MONO % 8.7 % (3.8-10.2); PLATELET COUNT 118 10^3/uL (134-434); RBC 4.76 M/mm3 (3.60-5.2); RDW 19.2 % (11.6-15.6); WHITE BLOOD COUNT 4.7 K/mm3 (4.0-10.0)
[2021-10-17 12:01] LABS: CALCIUM 9.1 mg/dL (8.5-10.1)
[2021-10-17 12:07] LABS: CREATININE 1.5 mg/dL (0.55-1.3)
[2021-10-17 12:13] LABS: BLOOD UREA NITROGEN 37.7 mg/dL (7-18)
[2021-10-17] MEDS: DONEPEZIL HCL 5 MG TABLET (FP) PO SCH (21:49)
[2021-10-18] MEDS: MULTIVITAMINS (DAILY MVI) TABLET (FP) PO SCH (11:02)
[2021-10-18] MEDS: metoPROLOL SUCCINATE 25 MG TAB.SR.24H (FP) PO SCH (11:02)
[2021-10-18] MEDS: APIXABAN 2.5 MG TABLET PO SCH ×2 (11:02→22:40)
[2021-10-18] MEDS: QUEtiapine FUMARATE 25 MG TABLET PO SCH ×2 (11:02→22:38)
[2021-10-18 17:18] LABS: BASO % 0.7 % (0-2.0); EOS % 4.2 % (0-4.5); HEMATOCRIT 37.5 % (32.4-45.2); HEMOGLOBIN 12.1 GM/dL (10.7-15.3); LYMPH % 39.9 % (8-40); MCH 26.5 pg (25.7-33.7); MCHC 32.2 g/dl (32.0-36.0); MEAN CELL VOLUME 82.3 fl (80-96); MEAN PLT VOLUME 10.5 fl (7.5-11.1); MONO % 10.4 % (3.8-10.2); NEUT % 44.8 % (42.8-82.8); PLATELET COUNT 120 10^3/uL (134-434); RBC 4.55 M/mm3 (3.60-5.2); RDW 19.5 % (11.6-15.6); WHITE BLOOD COUNT 4.1 K/mm3 (4.0-10.0)
[2021-10-18 17:32] LABS: CALCIUM 8.9 mg/dL (8.5-10.1)
[2021-10-18 17:33] LABS: BLOOD UREA NITROGEN 35.8 mg/dL (7-18)
[2021-10-18 17:36] LABS: CREATININE 1.4 mg/dL (0.55-1.3)
[2021-10-18] MEDS: DONEPEZIL HCL 5 MG TABLET (FP) PO SCH (22:40)
[2021-10-19] MEDS: QUEtiapine FUMARATE 25 MG TABLET PO SCH ×2 (10:37→22:08)
[2021-10-19] MEDS: metoPROLOL SUCCINATE 25 MG TAB.SR.24H (FP) PO SCH (10:37)
[2021-10-19] MEDS: APIXABAN 2.5 MG TABLET PO SCH ×2 (10:37→22:08)
[2021-10-19] MEDS: MULTIVITAMINS (DAILY MVI) TABLET (FP) PO SCH (10:37)
[2021-10-19 11:37] LABS: BLOOD UREA NITROGEN 35.6 mg/dL (7-18); CALCIUM 9.2 mg/dL (8.5-10.1); MAGNESIUM 2.4 mg/dL (1.8-2.4)
[2021-10-19 11:40] LABS: PHOSPHOROUS 3.3 mg/dL (2.5-4.9)
[2021-10-19 11:41] LABS: CREATININE 1.3 mg/dL (0.55-1.3)
[2021-10-19] MEDS: DONEPEZIL HCL 5 MG TABLET (FP) PO SCH (22:08)
[2021-10-20] MEDS: QUEtiapine FUMARATE 25 MG TABLET PO SCH ×2 (09:01→21:56)
[2021-10-20] MEDS: metoPROLOL SUCCINATE 25 MG TAB.SR.24H (FP) PO SCH (09:01)
[2021-10-20] MEDS: MULTIVITAMINS (DAILY MVI) TABLET (FP) PO SCH (09:01)
[2021-10-20] MEDS: APIXABAN 2.5 MG TABLET PO SCH ×2 (09:01→21:56)
[2021-10-20] MEDS: DONEPEZIL HCL 5 MG TABLET (FP) PO SCH (21:56)
[2021-10-21] MEDS: QUEtiapine FUMARATE 25 MG TABLET PO SCH ×2 (09:19→21:58)
[2021-10-21] MEDS: APIXABAN 2.5 MG TABLET PO SCH ×2 (09:19→21:58)
[2021-10-21] MEDS: MULTIVITAMINS (DAILY MVI) TABLET (FP) PO SCH (09:19)
[2021-10-21] MEDS: metoPROLOL SUCCINATE 25 MG TAB.SR.24H (FP) PO SCH (09:20)
[2021-10-21 11:36] LABS: CALCIUM 8.7 mg/dL (8.5-10.1)
[2021-10-21 11:37] LABS: BLOOD UREA NITROGEN 24.6 mg/dL (7-18)
[2021-10-21 11:40] LABS: CREATININE 1.1 mg/dL (0.55-1.3)
[2021-10-21] MEDS: ACETAMINOPHEN 325 MG TABLET (FP) PO PRN (14:53)
[2021-10-21] MEDS: DONEPEZIL HCL 5 MG TABLET (FP) PO SCH (21:59)
[2021-10-21] MEDS: SACUBITRIL/VALSARTAN 24 MG-26 MG TABLET PO SCH (22:00)
[2021-10-22] MEDS: QUEtiapine FUMARATE 25 MG TABLET PO SCH ×3 (09:45→21:44)
[2021-10-22] MEDS: APIXABAN 2.5 MG TABLET PO SCH ×3 (09:45→21:44)
[2021-10-22] MEDS: metoPROLOL SUCCINATE 25 MG TAB.SR.24H (FP) PO SCH ×2 (09:45→10:48)
[2021-10-22] MEDS: MULTIVITAMINS (DAILY MVI) TABLET (FP) PO SCH ×2 (09:45→10:48)
[2021-10-22] MEDS: SACUBITRIL/VALSARTAN 24 MG-26 MG TABLET PO SCH ×3 (09:47→21:45)
[2021-10-22] MEDS: ACETAMINOPHEN 325 MG TABLET (FP) PO PRN (21:43)
[2021-10-22] MEDS: DONEPEZIL HCL 5 MG TABLET (FP) PO SCH (21:44)
[2021-10-23] MEDS: SACUBITRIL/VALSARTAN 24 MG-26 MG TABLET PO SCH ×2 (09:00→21:35)
[2021-10-23] MEDS: APIXABAN 2.5 MG TABLET PO SCH ×2 (09:00→21:35)
[2021-10-23] MEDS: MULTIVITAMINS (DAILY MVI) TABLET (FP) PO SCH (09:00)
[2021-10-23] MEDS: QUEtiapine FUMARATE 25 MG TABLET PO SCH ×2 (09:00→21:35)
[2021-10-23] MEDS: metoPROLOL SUCCINATE 25 MG TAB.SR.24H (FP) PO SCH (09:00)
[2021-10-23 09:01] LABS: EPI CELLS 18 /uL (0-25.1); HYALINE CASTS 1 /uL (0-3.1); PH,URINE 5.5 (5.0-8.0); URINE APPEARANCE TURBID; URINE BACTERIA 5660 /uL (0-1359); URINE BILIRUBIN 1+ (NEGATIVE); URINE COLOR DK YELLOW; URINE GLUCOSE (UA) NEGATIVE (NEGATIVE); URINE KETONE TRACE (NEGATIVE); URINE LEUK ESTERASE 3+ (NEGATIVE); URINE NITRITE POSITIVE (NEGATIVE); URINE PROTEIN 1+ (NEGATIVE); URINE RBC 39 /uL (0-23.9); URINE WBC 1150 /uL (0-25.8)
[2021-10-23 09:13] LABS: URINE CRYSTALS NEGATIVE /hpf
[2021-10-23 09:51] LABS: BASO % 0.7 % (0-2.0); EOS % 5.5 % (0-4.5); HEMATOCRIT 41.6 % (32.4-45.2); HEMOGLOBIN 13.5 GM/dL (10.7-15.3); LYMPH % 31.4 % (8-40); MCH 26.8 pg (25.7-33.7); MCHC 32.3 g/dl (32.0-36.0); MEAN PLT VOLUME 10.8 fl (7.5-11.1); MONO % 10.1 % (3.8-10.2); NEUT % 52.3 % (42.8-82.8); PLATELET COUNT 139 10^3/uL (134-434); RBC 5.02 M/mm3 (3.60-5.2); RDW 20.4 % (11.6-15.6); WHITE BLOOD COUNT 5.8 K/mm3 (4.0-10.0)
[2021-10-23 10:07] LABS: CALCIUM 9.4 mg/dL (8.5-10.1)
[2021-10-23 10:08] LABS: BLOOD UREA NITROGEN 22.3 mg/dL (7-18)
[2021-10-23 10:11] LABS: CREATININE 1.1 mg/dL (0.55-1.3)
[2021-10-23] MEDS: DONEPEZIL HCL 5 MG TABLET (FP) PO SCH (21:35)
[2021-10-24] MEDS ORDERED: ZINC OXIDE/PANTHENOL/VITAMIN E 56 GM TUBE TP PRN (09:02)
[2021-10-24 09:08] VITALS: BP 121/61; PULSE 75; TEMP 98.1
[2021-10-24] MEDS: SACUBITRIL/VALSARTAN 24 MG-26 MG TABLET PO SCH (09:51)
[2021-10-24] MEDS: QUEtiapine FUMARATE 25 MG TABLET PO SCH (09:52)
[2021-10-24] MEDS: APIXABAN 2.5 MG TABLET PO SCH (09:52)
[2021-10-24] MEDS: MULTIVITAMINS (DAILY MVI) TABLET (FP) PO SCH (09:52)
[2021-10-24] MEDS: metoPROLOL SUCCINATE 25 MG TAB.SR.24H (FP) PO SCH (09:52)
[2021-10-24 11:26] VITALS: BMI 24.5
== END 2021-10-24 12:41 | disposition home health service (06) | DRG 682 ==
LOC: JER 21:46 → JERBED 10-16 03:53 → J6S 10-16 08:29
PROVIDERS: ADMIT Hospitalist; ATTEND Internal Medicine
DX: N17.9 Acute kidney failure, unspecified (principal); G93.41 Metabolic encephalopathy; N39.0 Urinary tract infection, site not specified; I50.30 Unspecified diastolic (congestive) heart failure; I13.0 Hypertensive heart and chronic kidney disease with heart failure and stage 1 through stage 4 chronic kidney disease, or unspecified chronic kidney disease; F03.90 Unspecified dementia, unspecified severity, without behavioral disturbance, psychotic disturbance, mood disturbance, and anxiety; L89.322 Pressure ulcer of left buttock, stage 2; L89.312 Pressure ulcer of right buttock, stage 2; E78.5 Hyperlipidemia, unspecified; N18.30 Chronic kidney disease, stage 3 unspecified; J44.9 Chronic obstructive pulmonary disease, unspecified; E87.5 Hyperkalemia; I48.91 Unspecified atrial fibrillation; E86.0 Dehydration
CPT/HCPCS: 0241U-QW; 36415; 70450-TC; 71045-TC-FY; 80048; 80053; 81003; 82570; 82962; 83735; 84100; 84156; 84300; 84484; 85025; 87086; 87186; 93005; 93010; 99285-25

== ENCOUNTER 2022-01-26 22:02 | Inpatient (IN) | payer OTHER ==
[2022-01-26] MEDS ORDERED: ALBUTEROL SO4 2.5/IPRATROPIUM 0.5 INH SOL 3 ML VIAL.NEB. NEB ONE ×2 (22:42→22:48)
[2022-01-26 23:08] LABS: HEMATOCRIT 31.5 % (32.4-45.2); HEMOGLOBIN 10.4 GM/dL (10.7-15.3); MCH 29.2 pg (25.7-33.7); MCHC 33.2 g/dl (32.0-36.0); MEAN PLT VOLUME 10.2 fl (7.5-11.1); PLATELET COUNT 160 10^3/uL (134-434); RBC 3.57 M/mm3 (3.60-5.2); RDW 15.7 % (11.6-15.6); WHITE BLOOD COUNT 9.2 K/mm3 (4.0-10.0)
[2022-01-26 23:31] LABS: CHLORIDE 102 mmol/L (98-107); SODIUM 135 mmol/L (136-145)
[2022-01-26 23:34] LABS: ALBUMIN 2.5 g/dl (3.4-5.0); BLOOD UREA NITROGEN 53.2 mg/dL (7-18); CO2 25 mmol/L (21-32); GLUCOSE,RANDOM 131 mg/dL (74-106)
[2022-01-26 23:37] LABS: CREATININE 2.4 mg/dL (0.55-1.3); SGOT/AST 49 U/L (15-37); SGPT/ALT 25 U/L (13-61)
[2022-01-26 23:38] LABS: TOT PROT 6.6 g/dl (6.4-8.2)
[2022-01-26 23:38] LABS: EPI CELLS 19 /uL (0-25.1); HYALINE CASTS 2 /uL (0-3.1); URINE APPEARANCE CLOUDY; URINE BACTERIA 7094 /uL (0-1359); URINE BILIRUBIN NEGATIVE (NEGATIVE); URINE COLOR DK YELLOW; URINE GLUCOSE (UA) NEGATIVE (NEGATIVE); URINE KETONE NEGATIVE (NEGATIVE); URINE LEUK ESTERASE 2+ (NEGATIVE); URINE NITRITE POSITIVE (NEGATIVE); URINE PROTEIN 1+ (NEGATIVE); URINE RBC 517 /uL (0-23.9); URINE UROBILINOGEN 0.2 mg/dL (0.2-1.0); URINE WBC 235 /uL (0-25.8)
[2022-01-26 23:39] LABS: BILIRUBIN,TOTAL 0.8 mg/dL (0.2-1)
[2022-01-26 23:40] LABS: ALK PHOS 50 U/L (45-117)
[2022-01-26] MEDS ORDERED: SODIUM CHLORIDE 500 ML IV STA (23:44)
[2022-01-26 23:49] LABS: ANION GAP 7 MMOL/L (8-16)
[2022-01-26] MEDS ORDERED: CEFTRIAXONE 1,000 MG in DEXTROSE 5%-WATER - 50 ML IVPB ONE (23:49)
[2022-01-27 01:11] LABS: CALCIUM 8.3 mg/dL (8.5-10.1)
[2022-01-27 01:12] LABS: BLOOD UREA NITROGEN 56.3 mg/dL (7-18)
[2022-01-27 01:15] LABS: CREATININE 2.5 mg/dL (0.55-1.3)
[2022-01-27] MEDS ORDERED: INSULIN REGULAR HUMAN 100 UNITS/ML *VIAL IVPUSH ONE (01:29)
[2022-01-27] MEDS ORDERED: ALBUTEROL SO4 0.083% IH SOL 2.5 MG/3 ML VIAL.NEB. NEB ONE (01:29)
[2022-01-27 01:31] LABS: VENOUS BASE EXCESS -2.8 mmol/L (-2-2); VENOUS O2 SATURATION 68.9 % (70-80); VENOUS PH 7.322 (7.310-7.410)
[2022-01-27] MEDS ORDERED: DEXTROSE 50%-WATER - 25 GM/50 ML VIAL IVPUSH ONE (01:31)
[2022-01-27] MEDS ORDERED: CALCIUM GLUCONATE 10% - 1,000 MG/10 ML VIAL IVPB ONE (01:31)
[2022-01-27 01:48] LABS: INR 1.96 (0.83-1.09); PROTHROMBIN TIME (PATIENT) 22.7 SEC (9.7-13.0)
[2022-01-27] MEDS ORDERED: ALBUTEROL SO4 0.5 % INH SOLN 2.5 MG/0.5 ML VIAL.NEB. NEB ONE (01:54)
[2022-01-27] MEDS ORDERED: DEXTROSE 50%-WATER 25 GM/50 ML DISP.SYRIN ONE (01:55)
[2022-01-27] MEDS ORDERED: CALCIUM GLUCONATE 10% - 1,000 MG/10 ML VIAL ONE (01:55)
[2022-01-27 02:26] LABS: ACTIVATED PTT 36.5 SECONDS (25.2-36.5)
[2022-01-27] MEDS ORDERED: NOREPINEPHRINE BITARTRATE 4,000 MCG in DEXTROSE 5%-WATER - 496 ML IV SCH (03:30)
[2022-01-27 07:34] LABS: ALBUMIN 2.5 g/dl (3.4-5.0); CALCIUM 8.4 mg/dL (8.5-10.1)
[2022-01-27 07:35] LABS: BLOOD UREA NITROGEN 55.7 mg/dL (7-18)
[2022-01-27 07:37] LABS: CREATININE 2.4 mg/dL (0.55-1.3)
[2022-01-27 07:39] LABS: BILIRUBIN,TOTAL 0.8 mg/dL (0.2-1); TOT PROT 6.3 g/dl (6.4-8.2)
[2022-01-27] MEDS ORDERED: SODIUM ZIRCONIUM CYCLOSILICATE (LOKELMA) 5 GM PACKET ONE ×2 (11:17→11:18)
[2022-01-27] MEDS: SODIUM ZIRCONIUM CYCLOSILICATE (LOKELMA) 5 GM PACKET PO SCH (11:21)
[2022-01-27] MEDS ORDERED: ALBUTEROL SO4 HFA INHALER IH PRN (16:25)
[2022-01-27] MEDS ORDERED: CEFTRIAXONE 1 GM in DEXTROSE 5%-WATER - 50 ML IVPB SCH (16:30)
[2022-01-27] MEDS ORDERED: SODIUM CHLORIDE 0.45% 1,000 ML IV SCH (17:00)
[2022-01-27] MEDS ORDERED: CEFTRIAXONE 1 GM/50 ML BAG ONE ×2 (17:44)
[2022-01-27] MEDS: SODIUM CHLORIDE 1,000 ML IV SCH (17:58)
[2022-01-27] MEDS: FAMOTIDINE 20 MG/50 ML IVPB 20 MG/50 ML MG IVPB SCH (21:51)
[2022-01-28] MEDS: ALBUTEROL SO4 2.5/IPRATROPIUM 0.5 INH SOL 3 ML VIAL.NEB. NEB SCH ×5 (02:02→20:03)
[2022-01-28 07:37] LABS: BASO % 0.4 % (0-2.0); EOS % 5.1 % (0-4.5); HEMATOCRIT 36.3 % (32.4-45.2); HEMOGLOBIN 11.5 GM/dL (10.7-15.3); LYMPH % 15.2 % (8-40); MCH 28.4 pg (25.7-33.7); MCHC 31.8 g/dl (32.0-36.0); MEAN CELL VOLUME 89.3 fl (80-96); MEAN PLT VOLUME 11.2 fl (7.5-11.1); MONO % 8.9 % (3.8-10.2); NEUT % 70.4 % (42.8-82.8); PLATELET COUNT 140 10^3/uL (134-434); RBC 4.06 M/mm3 (3.60-5.2); RDW 15.8 % (11.6-15.6); WHITE BLOOD COUNT 10.2 K/mm3 (4.0-10.0)
[2022-01-28 07:47] LABS: BLOOD UREA NITROGEN 54.5 mg/dL (7-18); CALCIUM 9.3 mg/dL (8.5-10.1)
[2022-01-28 07:48] LABS: ALBUMIN 2.8 g/dl (3.4-5.0); MAGNESIUM 2.3 mg/dL (1.8-2.4)
[2022-01-28 07:52] LABS: BILIRUBIN,TOTAL 0.6 mg/dL (0.2-1); TOT PROT 6.8 g/dl (6.4-8.2)
[2022-01-28] MEDS ORDERED: POLYETHYLENE GLYCOL (HEALTHYLAX) 3350 17 GM PACKET PO PRN (09:31)
[2022-01-28] MEDS ORDERED: ACETAMINOPHEN 325 MG TABLET (FP) PO PRN (09:31)
[2022-01-28] MEDS: FAMOTIDINE 20 MG/50 ML IVPB 20 MG/50 ML MG IVPB SCH ×2 (10:19→21:14)
[2022-01-28] MEDS: SODIUM ZIRCONIUM CYCLOSILICATE (LOKELMA) 5 GM PACKET PO SCH (10:19)
[2022-01-28] MEDS: APIXABAN 2.5 MG TABLET PO SCH ×2 (10:26→21:14)
[2022-01-28] MEDS: metoPROLOL SUCCINATE 25 MG TAB.SR.24H (FP) PO SCH (10:26)
[2022-01-28] MEDS: CEFTRIAXONE 1 GM in DEXTROSE 5%-WATER - 50 ML IVPB SCH (10:27)
[2022-01-28] MEDS ORDERED: SODIUM CHLORIDE 0.45% 1,000 ML IV SCH (11:22)
[2022-01-28] MEDS: SODIUM CHLORIDE 1,000 ML IV SCH (18:03)
[2022-01-28 18:47] LABS: EPI CELLS 9 /uL (0-25.1); HYALINE CASTS 2 /uL (0-3.1); URINE APPEARANCE CLEAR; URINE BACTERIA 53 /uL (0-1359); URINE BILIRUBIN NEGATIVE (NEGATIVE); URINE COLOR YELLOW; URINE GLUCOSE (UA) NEGATIVE (NEGATIVE); URINE KETONE NEGATIVE (NEGATIVE); URINE LEUK ESTERASE 1+ (NEGATIVE); URINE NITRITE NEGATIVE (NEGATIVE); URINE PROTEIN TRACE (NEGATIVE); URINE RBC 21 /uL (0-23.9); URINE WBC 23 /uL (0-25.8)
[2022-01-28 19:29] LABS: YEAST NONE SEEN (NEGATIVE)
[2022-01-28] MEDS: MELATONIN 5 MG TABLETS PO SCH (21:13)
[2022-01-28] MEDS: QUEtiapine FUMARATE 25 MG TABLET PO SCH (21:13)
[2022-01-29] MEDS: ALBUTEROL SO4 2.5/IPRATROPIUM 0.5 INH SOL 3 ML VIAL.NEB. NEB SCH ×4 (07:25→22:02)
[2022-01-29 08:30] LABS: BASO % 0.9 % (0-2.0); EOS % 3.8 % (0-4.5); HEMATOCRIT 33.9 % (32.4-45.2); LYMPH % 17.1 % (8-40); MCHC 32.5 g/dl (32.0-36.0); MEAN CELL VOLUME 89.2 fl (80-96); MEAN PLT VOLUME 10.9 fl (7.5-11.1); MONO % 11.5 % (3.8-10.2); NEUT % 66.7 % (42.8-82.8); PLATELET COUNT 154 10^3/uL (134-434); WHITE BLOOD COUNT 7.4 K/mm3 (4.0-10.0)
[2022-01-29 08:50] LABS: CALCIUM 8.8 mg/dL (8.5-10.1)
[2022-01-29 08:51] LABS: ALBUMIN 2.8 g/dl (3.4-5.0)
[2022-01-29 08:53] LABS: CREATININE 1.5 mg/dL (0.55-1.3)
[2022-01-29 08:55] LABS: BILIRUBIN,TOTAL 0.6 mg/dL (0.2-1)
[2022-01-29] MEDS: APIXABAN 2.5 MG TABLET PO SCH ×2 (09:27→22:07)
[2022-01-29] MEDS: SODIUM ZIRCONIUM CYCLOSILICATE (LOKELMA) 5 GM PACKET PO SCH (09:27)
[2022-01-29] MEDS: CEFTRIAXONE 1 GM in DEXTROSE 5%-WATER - 50 ML IVPB SCH (09:27)
[2022-01-29] MEDS: FAMOTIDINE 20 MG/50 ML IVPB 20 MG/50 ML MG IVPB SCH ×2 (09:27→22:07)
[2022-01-29] MEDS: SODIUM CHLORIDE 1,000 ML IV SCH (09:28)
[2022-01-29] MEDS: metoPROLOL SUCCINATE 25 MG TAB.SR.24H (FP) PO SCH (09:28)
[2022-01-29] MEDS ORDERED: SODIUM CHLORIDE 0.45% 1,000 ML IV SCH (11:45)
[2022-01-29 20:21] VITALS: BMI 24.5
[2022-01-29] MEDS: MELATONIN 5 MG TABLETS PO SCH (22:07)
[2022-01-29] MEDS: QUEtiapine FUMARATE 25 MG TABLET PO SCH (22:08)
[2022-01-30] MEDS: ALBUTEROL SO4 2.5/IPRATROPIUM 0.5 INH SOL 3 ML VIAL.NEB. NEB SCH ×4 (07:16→20:52)
[2022-01-30 08:14] LABS: BASO % 0.7 % (0-2.0); EOS % 3.7 % (0-4.5); HEMATOCRIT 31.8 % (32.4-45.2); HEMOGLOBIN 10.6 GM/dL (10.7-15.3); LYMPH % 13.6 % (8-40); MCH 29.2 pg (25.7-33.7); MCHC 33.3 g/dl (32.0-36.0); MEAN CELL VOLUME 87.8 fl (80-96); MEAN PLT VOLUME 10.9 fl (7.5-11.1); MONO % 12.9 % (3.8-10.2); NEUT % 69.1 % (42.8-82.8); PLATELET COUNT 162 10^3/uL (134-434); RBC 3.62 M/mm3 (3.60-5.2); RDW 15.7 % (11.6-15.6); WHITE BLOOD COUNT 7.3 K/mm3 (4.0-10.0)
[2022-01-30 08:33] LABS: ALBUMIN 2.7 g/dl (3.4-5.0); BLOOD UREA NITROGEN 33.3 mg/dL (7-18); CALCIUM 8.4 mg/dL (8.5-10.1)
[2022-01-30 08:36] LABS: CREATININE 1.5 mg/dL (0.55-1.3)
[2022-01-30 08:38] LABS: BILIRUBIN,TOTAL 0.7 mg/dL (0.2-1); TOT PROT 6.7 g/dl (6.4-8.2)
[2022-01-30] MEDS: FAMOTIDINE 20 MG/50 ML IVPB 20 MG/50 ML MG IVPB SCH ×2 (10:31→22:30)
[2022-01-30] MEDS: CEFTRIAXONE 1 GM in DEXTROSE 5%-WATER - 50 ML IVPB SCH (10:32)
[2022-01-30] MEDS: MULTIVITAMINS (DAILY MVI) TABLET (FP) PO SCH (10:34)
[2022-01-30] MEDS: ASCORBIC ACID 250 MG TABLET (FP) PO SCH (10:34)
[2022-01-30] MEDS: APIXABAN 2.5 MG TABLET PO SCH ×2 (10:34→22:02)
[2022-01-30] MEDS: metoPROLOL SUCCINATE 25 MG TAB.SR.24H (FP) PO SCH (10:34)
[2022-01-30] MEDS: SODIUM ZIRCONIUM CYCLOSILICATE (LOKELMA) 5 GM PACKET PO SCH (11:48)
[2022-01-30] MEDS: QUEtiapine FUMARATE 25 MG TABLET PO SCH (22:01)
[2022-01-30] MEDS: MELATONIN 5 MG TABLETS PO SCH (22:03)
[2022-01-31] MEDS: ALBUTEROL SO4 2.5/IPRATROPIUM 0.5 INH SOL 3 ML VIAL.NEB. NEB SCH ×4 (07:58→20:40)
[2022-01-31 08:06] LABS: BASO % 0.4 % (0-2.0); EOS % 0.7 % (0-4.5); HEMATOCRIT 32.8 % (32.4-45.2); HEMOGLOBIN 10.9 GM/dL (10.7-15.3); LYMPH % 9.1 % (8-40); MCH 29.5 pg (25.7-33.7); MCHC 33.3 g/dl (32.0-36.0); MEAN CELL VOLUME 88.6 fl (80-96); MEAN PLT VOLUME 9.9 fl (7.5-11.1); MONO % 12.4 % (3.8-10.2); NEUT % 77.4 % (42.8-82.8); PLATELET COUNT 161 10^3/uL (134-434); RBC 3.71 M/mm3 (3.60-5.2); RDW 15.6 % (11.6-15.6); WHITE BLOOD COUNT 9.3 K/mm3 (4.0-10.0)
[2022-01-31 08:40] LABS: CALCIUM 8.8 mg/dL (8.5-10.1)
[2022-01-31 08:41] LABS: BLOOD UREA NITROGEN 29.1 mg/dL (7-18)
[2022-01-31 08:44] LABS: CREATININE 1.3 mg/dL (0.55-1.3)
[2022-01-31] MEDS: metoPROLOL SUCCINATE 25 MG TAB.SR.24H (FP) PO SCH (10:25)
[2022-01-31] MEDS: MULTIVITAMINS (DAILY MVI) TABLET (FP) PO SCH (10:25)
[2022-01-31] MEDS: SODIUM ZIRCONIUM CYCLOSILICATE (LOKELMA) 5 GM PACKET PO SCH (10:25)
[2022-01-31] MEDS: CEFTRIAXONE 1 GM in DEXTROSE 5%-WATER - 50 ML IVPB SCH (10:25)
[2022-01-31] MEDS: ASCORBIC ACID 250 MG TABLET (FP) PO SCH (10:25)
[2022-01-31] MEDS: FAMOTIDINE 20 MG/50 ML IVPB 20 MG/50 ML MG IVPB SCH (10:25)
[2022-01-31] MEDS: APIXABAN 2.5 MG TABLET PO SCH ×2 (10:25→21:51)
[2022-01-31] MEDS ORDERED: POLYETHYLENE GLYCOL (HEALTHYLAX) 3350 17 GM PACKET PO PRN (20:46)
[2022-01-31] MEDS ORDERED: ALBUTEROL SO4 HFA INHALER IH PRN (20:46)
[2022-01-31] MEDS: QUEtiapine FUMARATE 25 MG TABLET PO SCH (21:50)
[2022-01-31] MEDS: MELATONIN 5 MG TABLETS PO SCH (21:51)
[2022-02-01] MEDS: ALBUTEROL SO4 2.5/IPRATROPIUM 0.5 INH SOL 3 ML VIAL.NEB. NEB SCH ×4 (07:15→19:34)
[2022-02-01 08:51] LABS: BASO % 0.7 % (0-2.0); EOS % 2.6 % (0-4.5); LYMPH % 14.2 % (8-40); MCH 29.3 pg (25.7-33.7); MCHC 33.2 g/dl (32.0-36.0); MEAN CELL VOLUME 88.2 fl (80-96); MEAN PLT VOLUME 10.5 fl (7.5-11.1); MONO % 12.5 % (3.8-10.2); PLATELET COUNT 173 10^3/uL (134-434); RBC 3.74 M/mm3 (3.60-5.2); RDW 15.6 % (11.6-15.6); WHITE BLOOD COUNT 9.2 K/mm3 (4.0-10.0)
[2022-02-01 09:11] LABS: BLOOD UREA NITROGEN 26.9 mg/dL (7-18)
[2022-02-01 09:14] LABS: CREATININE 1.3 mg/dL (0.55-1.3)
[2022-02-01] MEDS: ASCORBIC ACID 250 MG TABLET (FP) PO SCH (09:27)
[2022-02-01] MEDS: MULTIVITAMINS (DAILY MVI) TABLET (FP) PO SCH (09:27)
[2022-02-01] MEDS: APIXABAN 2.5 MG TABLET PO SCH ×2 (09:27→21:36)
[2022-02-01] MEDS: CEFTRIAXONE 1 GM in DEXTROSE 5%-WATER - 50 ML IVPB SCH (09:27)
[2022-02-01] MEDS ORDERED: metoPROLOL SUCCINATE 25 MG TAB.SR.24H (FP) PO SCH (10:00)
[2022-02-01] MEDS: MELATONIN 5 MG TABLETS PO SCH (21:36)
[2022-02-01] MEDS: QUEtiapine FUMARATE 25 MG TABLET PO SCH (21:36)
[2022-02-02] MEDS: ALBUTEROL SO4 2.5/IPRATROPIUM 0.5 INH SOL 3 ML VIAL.NEB. NEB SCH ×4 (08:04→20:00)
[2022-02-02] MEDS: ASCORBIC ACID 250 MG TABLET (FP) PO SCH (09:30)
[2022-02-02] MEDS: CEFTRIAXONE 1 GM in DEXTROSE 5%-WATER - 50 ML IVPB SCH (09:30)
[2022-02-02] MEDS: APIXABAN 2.5 MG TABLET PO SCH ×2 (09:30→21:10)
[2022-02-02] MEDS: MULTIVITAMINS (DAILY MVI) TABLET (FP) PO SCH (09:30)
[2022-02-02] MEDS: ACETAMINOPHEN 325 MG TABLET (FP) PO PRN (09:36)
[2022-02-02] MEDS: GABAPENTIN 100 MG CAPSULE PO SCH ×2 (13:52→21:10)
[2022-02-02] MEDS: MELATONIN 5 MG TABLETS PO SCH (21:10)
[2022-02-02] MEDS: QUEtiapine FUMARATE 25 MG TABLET PO SCH (21:10)
[2022-02-03] MEDS: GABAPENTIN 100 MG CAPSULE PO SCH ×3 (07:18→22:04)
[2022-02-03] MEDS: ALBUTEROL SO4 2.5/IPRATROPIUM 0.5 INH SOL 3 ML VIAL.NEB. NEB SCH ×4 (07:45→20:42)
[2022-02-03] MEDS: CEFTRIAXONE 1 GM in DEXTROSE 5%-WATER - 50 ML IVPB SCH (09:04)
[2022-02-03] MEDS: ASCORBIC ACID 250 MG TABLET (FP) PO SCH (09:05)
[2022-02-03] MEDS: APIXABAN 2.5 MG TABLET PO SCH ×2 (09:05→22:27)
[2022-02-03] MEDS: MULTIVITAMINS (DAILY MVI) TABLET (FP) PO SCH (09:05)
[2022-02-03 09:18] LABS: BASO % 0.6 % (0-2.0); EOS % 9.2 % (0-4.5); HEMATOCRIT 34.3 % (32.4-45.2); LYMPH % 14.2 % (8-40); MCH 28.5 pg (25.7-33.7); MCHC 32.1 g/dl (32.0-36.0); MEAN CELL VOLUME 88.9 fl (80-96); MONO % 6.8 % (3.8-10.2); NEUT % 69.2 % (42.8-82.8); PLATELET COUNT 221 10^3/uL (134-434); RBC 3.85 M/mm3 (3.60-5.2)
[2022-02-03 09:43] LABS: CALCIUM 9.3 mg/dL (8.5-10.1)
[2022-02-03 09:44] LABS: BLOOD UREA NITROGEN 30.7 mg/dL (7-18)
[2022-02-03 09:47] LABS: CREATININE 1.2 mg/dL (0.55-1.3)
[2022-02-03] MEDS: ACETAMINOPHEN 325 MG TABLET (FP) PO PRN (22:03)
[2022-02-03] MEDS: MELATONIN 5 MG TABLETS PO SCH (22:04)
[2022-02-03] MEDS: QUEtiapine FUMARATE 25 MG TABLET PO SCH (22:04)
[2022-02-04] MEDS: GABAPENTIN 100 MG CAPSULE PO SCH ×3 (05:47→23:09)
[2022-02-04] MEDS: ALBUTEROL SO4 2.5/IPRATROPIUM 0.5 INH SOL 3 ML VIAL.NEB. NEB SCH ×5 (08:24→19:52)
[2022-02-04] MEDS: CEFTRIAXONE 1 GM in DEXTROSE 5%-WATER - 50 ML IVPB SCH (09:26)
[2022-02-04] MEDS: ASCORBIC ACID 250 MG TABLET (FP) PO SCH (09:26)
[2022-02-04] MEDS: APIXABAN 2.5 MG TABLET PO SCH ×2 (09:26→23:09)
[2022-02-04] MEDS: MULTIVITAMINS (DAILY MVI) TABLET (FP) PO SCH (09:26)
[2022-02-04] MEDS: MINERAL OIL/PET HY-PHL TOPICAL OINTMENT 454 GM JAR TP SCH (17:55)
[2022-02-04] MEDS: QUEtiapine FUMARATE 25 MG TABLET PO SCH (23:09)
[2022-02-04] MEDS: MELATONIN 5 MG TABLETS PO SCH (23:09)
[2022-02-05] MEDS: GABAPENTIN 100 MG CAPSULE PO SCH ×3 (05:26→22:46)
[2022-02-05] MEDS: ALBUTEROL SO4 2.5/IPRATROPIUM 0.5 INH SOL 3 ML VIAL.NEB. NEB SCH ×4 (08:17→20:30)
[2022-02-05 08:29] LABS: BASO % 0.7 % (0-2.0); EOS % 7.2 % (0-4.5); HEMATOCRIT 29.4 % (32.4-45.2); HEMOGLOBIN 9.8 GM/dL (10.7-15.3); LYMPH % 22.6 % (8-40); MCH 29.6 pg (25.7-33.7); MCHC 33.3 g/dl (32.0-36.0); MEAN CELL VOLUME 88.9 fl (80-96); MEAN PLT VOLUME 9.4 fl (7.5-11.1); MONO % 6.4 % (3.8-10.2); NEUT % 63.1 % (42.8-82.8); PLATELET COUNT 190 10^3/uL (134-434); RDW 15.6 % (11.6-15.6); WHITE BLOOD COUNT 7.2 K/mm3 (4.0-10.0)
[2022-02-05 08:50] LABS: CALCIUM 8.7 mg/dL (8.5-10.1)
[2022-02-05 08:51] LABS: ALBUMIN 2.3 g/dl (3.4-5.0)
[2022-02-05 08:54] LABS: CREATININE 1.2 mg/dL (0.55-1.3)
[2022-02-05 08:55] LABS: BILIRUBIN,TOTAL 0.4 mg/dL (0.2-1)
[2022-02-05 08:56] LABS: TOT PROT 5.9 g/dl (6.4-8.2)
[2022-02-05] MEDS: MULTIVITAMINS (DAILY MVI) TABLET (FP) PO SCH (09:12)
[2022-02-05] MEDS: CEFTRIAXONE 1 GM in DEXTROSE 5%-WATER - 50 ML IVPB SCH (09:12)
[2022-02-05] MEDS: APIXABAN 2.5 MG TABLET PO SCH ×2 (09:12→22:46)
[2022-02-05] MEDS: ASCORBIC ACID 250 MG TABLET (FP) PO SCH (09:13)
[2022-02-05] MEDS: MINERAL OIL/PET HY-PHL TOPICAL OINTMENT 454 GM JAR TP SCH (11:12)
[2022-02-05] MEDS: SILVER SULFADIAZINE 1% TOP CREAM 50 GM JAR TP SCH (11:18)
[2022-02-05] MEDS: MELATONIN 5 MG TABLETS PO SCH (22:46)
[2022-02-05] MEDS: QUEtiapine FUMARATE 25 MG TABLET PO SCH (22:46)
[2022-02-06] MEDS: GABAPENTIN 100 MG CAPSULE PO SCH ×3 (06:18→22:03)
[2022-02-06] MEDS: ALBUTEROL SO4 2.5/IPRATROPIUM 0.5 INH SOL 3 ML VIAL.NEB. NEB SCH ×4 (07:20→20:16)
[2022-02-06] MEDS: SILVER SULFADIAZINE 1% TOP CREAM 50 GM JAR TP SCH (10:27)
[2022-02-06] MEDS: ACETAMINOPHEN 325 MG TABLET (FP) PO PRN (10:27)
[2022-02-06] MEDS: MINERAL OIL/PET HY-PHL TOPICAL OINTMENT 454 GM JAR TP SCH (10:27)
[2022-02-06] MEDS: ASCORBIC ACID 250 MG TABLET (FP) PO SCH (10:28)
[2022-02-06] MEDS: APIXABAN 2.5 MG TABLET PO SCH ×2 (10:28→22:03)
[2022-02-06] MEDS: MULTIVITAMINS (DAILY MVI) TABLET (FP) PO SCH (10:28)
[2022-02-06] MEDS: AMINO ACIDS/PROTEIN HYDROLYS 30 ML LIQUID.PKT PO SCH (17:26)
[2022-02-06] MEDS: QUEtiapine FUMARATE 25 MG TABLET PO SCH (22:03)
[2022-02-06] MEDS: MELATONIN 5 MG TABLETS PO SCH (22:03)
[2022-02-07] MEDS: GABAPENTIN 100 MG CAPSULE PO SCH ×3 (05:47→21:00)
[2022-02-07] MEDS: ALBUTEROL SO4 2.5/IPRATROPIUM 0.5 INH SOL 3 ML VIAL.NEB. NEB SCH ×4 (08:20→20:08)
[2022-02-07] MEDS: AMINO ACIDS/PROTEIN HYDROLYS 30 ML LIQUID.PKT PO SCH ×2 (10:26→17:26)
[2022-02-07] MEDS: ASCORBIC ACID 250 MG TABLET (FP) PO SCH (10:26)
[2022-02-07] MEDS: MULTIVITAMINS (DAILY MVI) TABLET (FP) PO SCH (10:26)
[2022-02-07] MEDS: SILVER SULFADIAZINE 1% TOP CREAM 50 GM JAR TP SCH (10:27)
[2022-02-07] MEDS: APIXABAN 2.5 MG TABLET PO SCH ×2 (10:27→21:00)
[2022-02-07] MEDS: MINERAL OIL/PET HY-PHL TOPICAL OINTMENT 454 GM JAR TP SCH (10:27)
[2022-02-07 12:38] LABS: CALCIUM 8.6 mg/dL (8.5-10.1)
[2022-02-07 12:39] LABS: BLOOD UREA NITROGEN 30.1 mg/dL (7-18)
[2022-02-07 12:42] LABS: CREATININE 0.9 mg/dL (0.55-1.3)
[2022-02-07 14:37] LABS: BASO % 0.6 % (0-2.0); EOS % 5.7 % (0-4.5); HEMATOCRIT 34.7 % (32.4-45.2); HEMOGLOBIN 10.9 GM/dL (10.7-15.3); LYMPH % 19.4 % (8-40); MCH 27.9 pg (25.7-33.7); MCHC 31.5 g/dl (32.0-36.0); MEAN CELL VOLUME 88.6 fl (80-96); MEAN PLT VOLUME 9.9 fl (7.5-11.1); MONO % 6.1 % (3.8-10.2); NEUT % 68.2 % (42.8-82.8); PLATELET COUNT 223 10^3/uL (134-434); RBC 3.92 M/mm3 (3.60-5.2); RDW 15.7 % (11.6-15.6); WHITE BLOOD COUNT 6.2 K/mm3 (4.0-10.0)
[2022-02-07 15:04] LABS: CALCIUM 8.6 mg/dL (8.5-10.1)
[2022-02-07 15:05] LABS: BLOOD UREA NITROGEN 29.6 mg/dL (7-18)
[2022-02-07 15:07] LABS: CREATININE 0.9 mg/dL (0.55-1.3)
[2022-02-07] MEDS: MELATONIN 5 MG TABLETS PO SCH (21:00)
[2022-02-07] MEDS: QUEtiapine FUMARATE 25 MG TABLET PO SCH (21:00)
[2022-02-08] MEDS: GABAPENTIN 100 MG CAPSULE PO SCH ×3 (06:13→22:24)
[2022-02-08] MEDS: ALBUTEROL SO4 2.5/IPRATROPIUM 0.5 INH SOL 3 ML VIAL.NEB. NEB SCH ×4 (08:15→20:18)
[2022-02-08] MEDS: AMINO ACIDS/PROTEIN HYDROLYS 30 ML LIQUID.PKT PO SCH ×2 (08:32→16:42)
[2022-02-08] MEDS: ASCORBIC ACID 250 MG TABLET (FP) PO SCH (09:04)
[2022-02-08] MEDS: APIXABAN 2.5 MG TABLET PO SCH ×2 (09:04→22:24)
[2022-02-08] MEDS: MULTIVITAMINS (DAILY MVI) TABLET (FP) PO SCH (09:05)
[2022-02-08] MEDS: SILVER SULFADIAZINE 1% TOP CREAM 50 GM JAR TP SCH (09:05)
[2022-02-08] MEDS: MINERAL OIL/PET HY-PHL TOPICAL OINTMENT 454 GM JAR TP SCH (09:05)
[2022-02-08] MEDS: CHOLECALCIFEROL (VIT D3) 1,000 UNIT (25 MCG) TABLET PO SCH (09:06)
[2022-02-08] MEDS: FUROSEMIDE 20 MG TABLET (FP) PO SCH (15:24)
[2022-02-08] MEDS: MELATONIN 5 MG TABLETS PO SCH (22:24)
[2022-02-08] MEDS: QUEtiapine FUMARATE 25 MG TABLET PO SCH (22:24)
[2022-02-09] MEDS: GABAPENTIN 100 MG CAPSULE PO SCH ×3 (05:31→21:32)
[2022-02-09] MEDS: APIXABAN 2.5 MG TABLET PO SCH ×2 (09:01→21:32)
[2022-02-09] MEDS: MULTIVITAMINS (DAILY MVI) TABLET (FP) PO SCH (09:01)
[2022-02-09] MEDS: CHOLECALCIFEROL (VIT D3) 1,000 UNIT (25 MCG) TABLET PO SCH (09:01)
[2022-02-09] MEDS: AMINO ACIDS/PROTEIN HYDROLYS 30 ML LIQUID.PKT PO SCH ×2 (09:01→17:56)
[2022-02-09] MEDS: MINERAL OIL/PET HY-PHL TOPICAL OINTMENT 454 GM JAR TP SCH (09:01)
[2022-02-09] MEDS: FUROSEMIDE 20 MG TABLET (FP) PO SCH (09:01)
[2022-02-09] MEDS: ASCORBIC ACID 250 MG TABLET (FP) PO SCH (09:02)
[2022-02-09] MEDS: SILVER SULFADIAZINE 1% TOP CREAM 50 GM JAR TP SCH (09:02)
[2022-02-09] MEDS: ALBUTEROL SO4 2.5/IPRATROPIUM 0.5 INH SOL 3 ML VIAL.NEB. NEB SCH ×4 (10:05→20:04)
[2022-02-09] MEDS: ACETAMINOPHEN 325 MG TABLET (FP) PO PRN (11:05)
[2022-02-09 11:34] LABS: BASO % 0.6 % (0-2.0); EOS % 5.6 % (0-4.5); HEMATOCRIT 30.9 % (32.4-45.2); LYMPH % 25.4 % (8-40); MCH 28.6 pg (25.7-33.7); MCHC 32.3 g/dl (32.0-36.0); MEAN CELL VOLUME 88.7 fl (80-96); MEAN PLT VOLUME 9.8 fl (7.5-11.1); MONO % 10.3 % (3.8-10.2); NEUT % 58.1 % (42.8-82.8); PLATELET COUNT 200 10^3/uL (134-434); RBC 3.49 M/mm3 (3.60-5.2); RDW 15.8 % (11.6-15.6); WHITE BLOOD COUNT 5.9 K/mm3 (4.0-10.0)
[2022-02-09 12:19] LABS: CALCIUM 8.9 mg/dL (8.5-10.1)
[2022-02-09 12:20] LABS: BLOOD UREA NITROGEN 37.1 mg/dL (7-18)
[2022-02-09 12:23] LABS: CREATININE 1.1 mg/dL (0.55-1.3)
[2022-02-09] MEDS: SODIUM CHLORIDE 1,000 ML IV SCH (13:38)
[2022-02-09] MEDS: MELATONIN 5 MG TABLETS PO SCH (21:32)
[2022-02-09] MEDS: QUEtiapine FUMARATE 25 MG TABLET PO SCH (21:32)
[2022-02-10] MEDS: GABAPENTIN 100 MG CAPSULE PO SCH ×3 (05:41→23:17)
[2022-02-10] MEDS: SODIUM CHLORIDE 1,000 ML IV SCH ×2 (05:41→15:47)
[2022-02-10] MEDS: AMINO ACIDS/PROTEIN HYDROLYS 30 ML LIQUID.PKT PO SCH ×2 (09:27→16:47)
[2022-02-10] MEDS: APIXABAN 2.5 MG TABLET PO SCH ×2 (09:29→23:17)
[2022-02-10] MEDS: MINERAL OIL/PET HY-PHL TOPICAL OINTMENT 454 GM JAR TP SCH (09:29)
[2022-02-10] MEDS: CHOLECALCIFEROL (VIT D3) 1,000 UNIT (25 MCG) TABLET PO SCH (09:29)
[2022-02-10] MEDS: MULTIVITAMINS (DAILY MVI) TABLET (FP) PO SCH (09:29)
[2022-02-10] MEDS: SILVER SULFADIAZINE 1% TOP CREAM 50 GM JAR TP SCH (09:30)
[2022-02-10] MEDS: ASCORBIC ACID 250 MG TABLET (FP) PO SCH (09:33)
[2022-02-10] MEDS: ACETAMINOPHEN 325 MG TABLET (FP) PO PRN (13:18)
[2022-02-10] MEDS: ALBUTEROL SO4 2.5/IPRATROPIUM 0.5 INH SOL 3 ML VIAL.NEB. NEB SCH ×2 (16:10→20:01)
[2022-02-10 22:28] VITALS: RESP 20
[2022-02-10] MEDS: MELATONIN 5 MG TABLETS PO SCH (23:17)
[2022-02-10] MEDS: QUEtiapine FUMARATE 25 MG TABLET PO SCH (23:18)
[2022-02-11] MEDS: GABAPENTIN 100 MG CAPSULE PO SCH ×3 (07:00→21:25)
[2022-02-11] MEDS: ALBUTEROL SO4 2.5/IPRATROPIUM 0.5 INH SOL 3 ML VIAL.NEB. NEB SCH ×4 (07:55→20:10)
[2022-02-11 09:01] LABS: EOS % 7.4 % (0-4.5); HEMATOCRIT 30.8 % (32.4-45.2); HEMOGLOBIN 10.2 GM/dL (10.7-15.3); LYMPH % 26.8 % (8-40); MCH 29.4 pg (25.7-33.7); MCHC 33.2 g/dl (32.0-36.0); MEAN CELL VOLUME 88.4 fl (80-96); MEAN PLT VOLUME 9.8 fl (7.5-11.1); MONO % 10.3 % (3.8-10.2); NEUT % 54.5 % (42.8-82.8); PLATELET COUNT 191 10^3/uL (134-434); RBC 3.49 M/mm3 (3.60-5.2); RDW 15.3 % (11.6-15.6); WHITE BLOOD COUNT 5.4 K/mm3 (4.0-10.0)
[2022-02-11 09:54] LABS: ALBUMIN 2.4 g/dl (3.4-5.0); BLOOD UREA NITROGEN 39.4 mg/dL (7-18)
[2022-02-11 09:56] LABS: CALCIUM 8.6 mg/dL (8.5-10.1)
[2022-02-11 09:57] LABS: CREATININE 0.9 mg/dL (0.55-1.3)
[2022-02-11 09:58] LABS: BILIRUBIN,TOTAL 0.4 mg/dL (0.2-1)
[2022-02-11 09:59] LABS: TOT PROT 6.2 g/dl (6.4-8.2)
[2022-02-11] MEDS: SILVER SULFADIAZINE 1% TOP CREAM 50 GM JAR TP SCH (10:53)
[2022-02-11] MEDS: APIXABAN 2.5 MG TABLET PO SCH ×2 (10:53→21:25)
[2022-02-11] MEDS: MULTIVITAMINS (DAILY MVI) TABLET (FP) PO SCH (10:53)
[2022-02-11] MEDS: AMINO ACIDS/PROTEIN HYDROLYS 30 ML LIQUID.PKT PO SCH ×2 (10:53→17:06)
[2022-02-11] MEDS: CHOLECALCIFEROL (VIT D3) 1,000 UNIT (25 MCG) TABLET PO SCH (10:53)
[2022-02-11] MEDS: ASCORBIC ACID 250 MG TABLET (FP) PO SCH (10:53)
[2022-02-11] MEDS: MINERAL OIL/PET HY-PHL TOPICAL OINTMENT 454 GM JAR TP SCH (14:19)
[2022-02-11] MEDS: SODIUM CHLORIDE 1,000 ML IV SCH (14:20)
[2022-02-11] MEDS: QUEtiapine FUMARATE 25 MG TABLET PO SCH (21:25)
[2022-02-11] MEDS: MELATONIN 5 MG TABLETS PO SCH (21:25)
[2022-02-12] MEDS: GABAPENTIN 100 MG CAPSULE PO SCH (06:40)
[2022-02-12] MEDS: ALBUTEROL SO4 2.5/IPRATROPIUM 0.5 INH SOL 3 ML VIAL.NEB. NEB SCH (07:26)
[2022-02-12] MEDS: AMINO ACIDS/PROTEIN HYDROLYS 30 ML LIQUID.PKT PO SCH (08:23)
[2022-02-12] MEDS: ASCORBIC ACID 250 MG TABLET (FP) PO SCH (09:08)
[2022-02-12] MEDS: CHOLECALCIFEROL (VIT D3) 1,000 UNIT (25 MCG) TABLET PO SCH (09:08)
[2022-02-12] MEDS: APIXABAN 2.5 MG TABLET PO SCH (09:08)
[2022-02-12] MEDS: MULTIVITAMINS (DAILY MVI) TABLET (FP) PO SCH (09:08)
[2022-02-12] MEDS: MINERAL OIL/PET HY-PHL TOPICAL OINTMENT 454 GM JAR TP SCH (09:08)
[2022-02-12] MEDS: SILVER SULFADIAZINE 1% TOP CREAM 50 GM JAR TP SCH (09:09)
[2022-02-12 10:13] VITALS: BP 128/69; PULSE 74; TEMP 98.5
== END 2022-02-12 11:35 | disposition home health service (06) | DRG 871 ==
LOC: JER 22:02 → JICU 23:56 → JERBED 01-27 06:08 → J4W 01-27 21:09 → J7W 01-31 20:33
PROVIDERS: ADMIT Internal Medicine Pulmonary Disease; ATTEND Internal Medicine
DX: A41.9 Sepsis, unspecified organism (principal); G93.41 Metabolic encephalopathy; J18.9 Pneumonia, unspecified organism; N39.0 Urinary tract infection, site not specified; N17.9 Acute kidney failure, unspecified; J96.11 Chronic respiratory failure with hypoxia; I13.0 Hypertensive heart and chronic kidney disease with heart failure and stage 1 through stage 4 chronic kidney disease, or unspecified chronic kidney disease; I50.32 Chronic diastolic (congestive) heart failure; B96.29 Other Escherichia coli [E. coli] as the cause of diseases classified elsewhere; F03.90 Unspecified dementia, unspecified severity, without behavioral disturbance, psychotic disturbance, mood disturbance, and anxiety; I48.91 Unspecified atrial fibrillation; J44.9 Chronic obstructive pulmonary disease, unspecified; Z99.81 Dependence on supplemental oxygen; E87.5 Hyperkalemia; N18.30 Chronic kidney disease, stage 3 unspecified; E86.0 Dehydration; E78.00 Pure hypercholesterolemia, unspecified; L89.152 Pressure ulcer of sacral region, stage 2; L30.8 Other specified dermatitis; Z85.118 Personal history of other malignant neoplasm of bronchus and lung
CPT/HCPCS: 0241U-QW; 36415; 71045-TC-FY; 74230-TC-FY; 76775-TC; 76856-TC; 80048; 80053; 81003; 82436; 82570; 82803; 82962; 83605; 83735; 83880; 84133; 84300; 84484; 85025; 85027; 85610; 85730; 86850; 86900; 86901; 87040; 87086; 87186; 92611-GN; 93005; 93010; 93306-TC; 94640; 99285-25